=== PATIENT | female | born 1995 | race Caucasian/White ===

== ENCOUNTER 2017-03-05 12:49 | Emergency (ER) | payer BC, MEDICAID ==
[2017-03-05 13:10] VITALS: O2SAT 98
[2017-03-05 13:34] LABS: BASOPHIL % 0.2 % (0.0-0.4); Eosinophil % 2.2 % (0.00-5.0); Granulocytes % 47.4 % (36.0-66.0); Lymphocytes % 37.2 % (24.0-44.0); Mean Cell Volume 86.1 fl (78-100); Mean Corpuscular Hemoglobin 29.2 pg (26-32); Mean Platelet Volume 9.7 fl (6-9.5); Platelet Count 376 K/mm3 (150-450); Red Blood Count 4.66 M/mm3 (4.1-5.4); Red Cell Distribution Width 12.8 % (11.5-14.0); White Blood Count 6.5 K/mm3 (4.0-10.5)
--- NOTE | 2017-03-05 13:34 | ERPHSYRPT ---
- History of Present Illness Time Seen by Provider: 03/05/17 13:11 Source: patient Patient Subjective Stated Complaint: pt states she has had vaginal bleeding since 03/02/17. states her Dr. has switched her control around in the past few days. pt states she wants checked out because she feels "weak, tires, sob and dizzy." Triage Nursing Assessment: pt pink, warm, dry. pt ambulated into ER without difficulty. pt can speak in full sentences without loosing air. Physician History: CC: vaginal bleeding Hx: 21 y/o patient of Dr Page with recent irregular heavy menses. She is breast feeding a 6 month old . She has had some heavier vaginal bleeding since Sunday. She had some clots. Called office and came to ER. No fever or chills. Some abd cramping. Stopped OCP last week after finding out they have estrogen. She felt some dizzy when up, some nausea, and some headache. Allergies/Adverse Reactions: guaifenesin [From Robitussin] Allergy (Intermediate, Verified 03/05/17 13:09) Hives Penicillins Allergy (Intermediate, Verified 03/05/17 13:09) Hives Sulfa (Sulfonamide Antibiotics) Allergy (Intermediate, Verified 03/05/17 13:09) Hives sarah Allergy (Verified 03/05/17 13:09) promethazine HCl [From Phenergan] Adverse Reaction (Mild, Unverified 03/05/17 13 :09) Vomiting Home Medications: Norethindrone-Ethinyl Estrad [Alyacen] 1 each PO UD 03/05/17 [History] Hx Tetanus, Diphtheria Vaccination/Date Given: Yes Hx Influenza Vaccination/Date Given: No Hx Pneumococcal Vaccination/Date Given: No - Review of Systems Constitutional: Malaise, No Fever, No Chills Eyes: No Symptoms Ears, Nose, & Throat: No Symptoms Respiratory: No Dyspnea Cardiac: No Chest Pain, No Syncope Abdominal/Gastrointestinal: Nausea, No Abdominal Pain Genitourinary Symptoms: Vaginal Bleeding, No , No Vaginal Discharge Skin: No Rash Neurological: Headache All Other Systems: Reviewed and Negative - Past Medical History Pertinent Past Medical History: No Neurological History: Migraines ENT History: No Pertinent History Cardiac History: No Pertinent History Respiratory History: No Pertinent History Endocrine Medical History: No Pertinent History Musculoskeletal History: No Pertinent History GI Medical History: No Pertinent History History: No Pertinent History Psycho-Social History: Depression Female Reproductive Disorders: No Pertinent History Other Medical History: Anemia. Hyperemesis - Past Surgical History Past Surgical History: Yes Neuro Surgical History: No Pertinent History Cardiac: No Pertinent History Respiratory: No Pertinent History Gastrointestinal: Appendectomy Genitourinary: No Pertinent History Musculoskeletal: No Pertinent History Female Surgical History: No Pertinent History - Social History Smoking Status: Never smoker Exposure to second hand smoke: No Drug Use: none Patient Lives Alone: No - Female History Hx Last Menstrual Period: now Hx Now: Yes - Nursing Vital Signs Nursing Vital Signs: Initial Vital Signs Temperature 98.5 F Temperature Source Oral Pulse Rate 82 Respiratory Rate 18 Blood Pressure [Right Arm] 131/69 Pain Intensity 5 - Physical Exam General Appearance: alert Eye Exam: PERRL/EOMI, No pale conjunctivae Ears, Nose, Throat Exam: normal ENT inspection, moist mucous membranes Neck Exam: normal inspection, non-tender, supple Respiratory Exam: normal breath sounds Cardiovascular Exam: regular rate/rhythm Gastrointestinal/Abdomen Exam: soft, No tenderness, No distention Pelvic Exam: normal external exam, vaginal bleeding (mild at os), No mass, No cervical motion tenderness, No uterine tenderness, No vaginal discharge Back Exam: normal inspection, normal range of motion Extremity Exam: normal inspection, normal range of motion Neurologic Exam: alert, oriented x 3, cooperative Skin Exam: warm, dry, No rash SpO2 Interpretation: normal SpO2: 98 Oxygen Delivery: Room Air - Course Nursing assessment & vital signs reviewed: Yes Ordered Tests: Active Orders 24 hr Category Date Time Status Orthostatic Vital Signs STAT Care 03/05/17 13:10 Active Pelvic Exam Assist STAT Care 03/05/17 13:12 Active cath [Cath for Specimen-Straight] STAT Care 03/05/17 13:25 Active CBC W DIFF Stat Lab 03/05/17 13:28 Completed HCG QUALITATIVE,SERUM Stat Lab 03/05/17 13:28 Completed UA W/RFX UR CULTURE Stat Lab 03/05/17 13:20 Completed Wet Prep Stat Lab 03/05/17 13:20 Completed Lab/Rad Data: Laboratory Result Diagrams 03/05/17 13:28 Laboratory Results 03/05/17 03/05/17 03/05/17 Range/Units 13:28 13:28 13:20 WBC 6.5 (4.0-10.5) K/mm3 RBC 4.66 (4.1-5.4) M/mm3 Hgb 13.6 (12.0-16.0) gm/dl Hct 40.1 (35-47) % MCV 86.1 (78-100) fl MCH 29.2 (26-32) pg MCHC 33.9 (32-36) g/dl RDW 12.8 (11.5-14.0) % Plt Count 376 (150-450) K/mm3 MPV 9.7 H (6-9.5) fl Gran % 47.4 (36.0-66.0) % Lymphocytes % 37.2 (24.0-44.0) % Monocytes % 13.0 H (0.0-12.0) % Eosinophils % 2.2 (0.00-5.0) % Basophils % 0.2 (0.0-0.4) % Basophils # 0.01 (0-0.4) Serum , Qual NEGATIVE (Negative) Ur Collection Type Urine Color (YELLOW) Urine Appearance (CLEAR) Urine pH (5-6) Ur Specific [place] (1.005-1.025) Urine Protein (Negative) Urine Ketones (NEGATIVE) Urine Blood (0-5) Myles/ul Urine Nitrite (NEGATIVE) Urine Bilirubin (NEGATIVE) Urine Urobilinogen (0-1) mg/dL Ur Leukocyte Esterase (NEGATIVE) Urine Glucose (NEGATIVE) mg/dL WBC (Wet Prep) None Seen RBC (Wet Prep) Many Epi Cells (Wet Prep) Few Bacteria (Wet Prep) Moderate Clue Cells (Wet Prep) Few Trichomonas (Wet Prep) None Seen Budding Yeast (Wet Prp) None Seen Specimen Received 03/05/17 Range/Units 13:20 WBC (4.0-10.5) K/mm3 RBC (4.1-5.4) M/mm3 Hgb (12.0-16.0) gm/dl Hct (35-47) % MCV (78-100) fl MCH (26-32) pg MCHC (32-36) g/dl RDW (11.5-14.0) % Plt Count (150-450) K/mm3 MPV (6-9.5) fl Gran % (36.0-66.0) % Lymphocytes % (24.0-44.0) % Monocytes % (0.0-12.0) % Eosinophils % (0.00-5.0) % Basophils % (0.0-0.4) % Basophils # (0-0.4) Serum , Qual (Negative) Ur Collection Type CATH Urine Color YELLOW (YELLOW) Urine Appearance CLEAR (CLEAR) Urine pH 6.0 (5-6) Ur Specific [place] 1.010 (1.005-1.025) Urine Protein NEGATIVE (Negative) Urine Ketones NEGATIVE (NEGATIVE) Urine Blood NEGATIVE (0-5) Myles/ul Urine Nitrite NEGATIVE (NEGATIVE) Urine Bilirubin NEGATIVE (NEGATIVE) Urine Urobilinogen NORMAL (0-1) mg/dL Ur Leukocyte Esterase NEGATIVE (NEGATIVE) Urine Glucose NEGATIVE (NEGATIVE) mg/dL WBC (Wet Prep) RBC (Wet Prep) Epi Cells (Wet Prep) Bacteria (Wet Prep) Clue Cells (Wet Prep) Trichomonas (Wet Prep) Budding Yeast (Wet Prp) Specimen Received [id number] - Progress Progress Note: 03/05/17 14:27 Vitals ok. Hg good. Advised APAP for discomfort, no tampons, and close follow up with Dr Page. Counseled pt/family regarding: lab results, diagnosis, need for follow-up - Departure Time of Disposition: 14:27 Departure Disposition: Home Clinical Impression: Menorrhagia Qualifiers: Menorrahagia type: with irregular cycle Qualified Code(s): N92.1 - Excessive and frequent menstruation with irregular cycle Condition: Stable Critical Care Time: No Referrals: SALLY DAVIS [Primary Care Provider] - Instructions: Menorrhagia Additional Instructions: No tampons- use pads. Drink plenty of fluids. Call DR Nieves for close follow up. Tylenol as directed for discomfort.
[2017-03-05 13:49] LABS: ADD URINE CULTURE? NO (NO); Bilirubin NEGATIVE (NEGATIVE); Blood NEGATIVE Ery/ul (0-5); COMPLETE URINE MICROSCOPIC? NO; Collection Type CATH; Glucose NEGATIVE (NEGATIVE); Leukocyte Esterase NEGATIVE (NEGATIVE)
[2017-03-05 13:53] LABS: Bacteria Moderate; Clue Cells Few
[2017-03-05 13:54] LABS: Trichomonas None Seen; Yeast None Seen
[2017-03-05 15:01] VITALS: BP 132/71; PULSE 80
[2017-03-05 16:03] LABS: CHLAMYDIA DNA NEGATIVE
== END 2017-03-05 14:35 | disposition home or self-care (01) ==
LOC: ED 12:49
DX: N92.1 Excessive and frequent menstruation with irregular cycle (principal)
CPT/HCPCS: 36415; 81002; 84703; 85025; 87210; 87490; 87590; 99284; P9612

== ENCOUNTER 2018-04-01 20:30 | Emergency (ER) | payer BC, OTHER ==
[2018-04-01 20:45] VITALS: O2SAT 100
[2018-04-01 21:07] LABS: BASOPHIL % 0.2 % (0.0-0.4); Basophil (Absolute #) 0.02 (0-0.4); Eosinophil % 1.1 % (0.00-5.0); Eosinophil (Absolute #) 0.11 (0-0.5); Granulocyte Absolute (ANC) 6.55 (1.4-6.9); Granulocytes % 62.7 % (36.0-66.0); Hematocrit 42.5 % (35-47); Hemoglobin 14.4 gm/dl (12.0-16.0); Lymphocyte (Absolute #) 2.77 (1.0-4.6); Lymphocytes % 26.6 % (24.0-44.0); Mean Cell Volume 85.5 fl (78-100); Mean Corpuscular Hgb Concent. 33.9 g/dl (32-36); Mean Platelet Volume 9.7 fl (6-9.5); Monocyte (Absolute #) 0.98 (0.0-1.3); Monocytes % 9.4 % (0.0-12.0); Platelet Count 389 K/mm3 (150-450); Red Blood Count 4.97 M/mm3 (4.1-5.4); Red Cell Distribution Width 13.4 % (11.5-14.0); White Blood Count 10.4 K/mm3 (4.0-10.5)
[2018-04-01 21:14] LABS: Appearance CLEAR (CLEAR); Bilirubin NEGATIVE (NEGATIVE); Blood NEGATIVE Ery/ul (0-5); Glucose NEGATIVE (NEGATIVE); Ketones NEGATIVE (NEGATIVE); Leukocyte Esterase NEGATIVE (NEGATIVE); Nitrite NEGATIVE (NEGATIVE); Protein,Urine Dip NEGATIVE (Negative); Urobilinogen NORMAL mg/dL (0-1)
--- NOTE | 2018-04-01 21:19 | ERPHSYRPT ---
- History of Present Illness Time Seen by Provider: 04/01/18 21:02 Source: patient Exam Limitations: no limitations Patient Subjective Stated Complaint: Pt arrives to ER with c/o swelling in bilateral hands for 5 weeks states is 9 weeks and today after an [address] home at 1700 c/o new intermittent bilateral tingling in hands lasting 5-10 minutes then goes away. States swelling has resolved at this moment. Pt also mentions SOB that began 1 hour ago. Pt does not appear to be in any distress at this time with respirations easy even regular and unlabored. O2 Sat 100% on RA Triage Nursing Assessment: see above Physician History: The patient is a 22-year-old female at 9 weeks 3 days per menstrual period, complaining of 20 minutes of shortness of breath and chest palpitations while at work prior to arrival. The shortness of breath was a feeling of that she couldn't catch her breath. This has now resolved as well as has the chest palpitations. She complains of intermittent bilateral hand swelling that began 5 weeks ago. The swelling now comes and goes but has for the most part resolved at this time. She was on a car ride today the total 8 hours. She states that she had numbness and tingling in both hands time to time. The numbness and tingling would last only 5 minutes. It would return after 30 minutes or more. She has not seen OB yet for this . She is to see OB tomorrow for the first visit. Her past pregnancies have been uneventful. Her past medical history is negative. Timing/Duration: today, resolved prior to arrival, sudden Activities at Onset: none Severity of Dyspnea-Max: mild Severity of Dyspnea-Current: none Possible Cause: no prior episodes Modifying Factors: Improves With: nothing Associated Symptoms: No cough, No edema, No wheezing, No ankle swelling, No leg swelling, No painful breathing Allergies/Adverse Reactions: guaifenesin [From Robitussin] Allergy (Intermediate, Verified 04/01/18 20:44) Hives Penicillins Allergy (Intermediate, Verified 04/01/18 20:44) Hives Sulfa (Sulfonamide Antibiotics) Allergy (Intermediate, Verified 04/01/18 20:44) Hives sarah Allergy (Verified 04/01/18 20:44) promethazine HCl [From Phenergan] Adverse Reaction (Mild, Verified 04/01/18 20: 44) Vomiting Home Medications: Vits W-Ca,Fe,FA(<1Mg) [] 1 each PO 04/01/18 [History] Hx Tetanus, Diphtheria Vaccination/Date Given: Yes Hx Influenza Vaccination/Date Given: No Hx Pneumococcal Vaccination/Date Given: No - Review of Systems Constitutional: No Fever, No Chills Eyes: No Symptoms Ears, Nose, & Throat: No Symptoms Respiratory: Dyspnea Cardiac: No Chest Pain, No Edema, No Syncope Abdominal/Gastrointestinal: No Abdominal Pain, No Nausea, No Vomiting, No Diarrhea Genitourinary Symptoms: No Dysuria Musculoskeletal: No Back Pain, No Neck Pain Skin: No Rash Neurological: Parasthesia Psychological: No Symptoms Endocrine: No Symptoms Hematologic/Lymphatic: No Symptoms Immunological/Allergic: No Symptoms All Other Systems: Reviewed and Negative - Past Medical History Pertinent Past Medical History: Yes Neurological History: Migraines ENT History: No Pertinent History Cardiac History: No Pertinent History Respiratory History: No Pertinent History Endocrine Medical History: No Pertinent History Musculoskeletal History: No Pertinent History GI Medical History: No Pertinent History History: No Pertinent History Psycho-Social History: Depression Female Reproductive Disorders: No Pertinent History Other Medical History: Anemia. Hyperemesis - Past Surgical History Past Surgical History: Yes Neuro Surgical History: No Pertinent History Cardiac: No Pertinent History Respiratory: No Pertinent History Gastrointestinal: Appendectomy Genitourinary: No Pertinent History Musculoskeletal: No Pertinent History Female Surgical History: No Pertinent History - Social History Smoking Status: Never smoker Exposure to second hand smoke: No Drug Use: none Patient Lives Alone: No - Female History Hx Now: Yes Expected Date of Delivery: 11/02/18 - Nursing Vital Signs Nursing Vital Signs: Initial Vital Signs Temperature 98.7 F 04/01/18 20:35 Pulse Rate 87 04/01/18 20:35 Respiratory Rate 18 04/01/18 20:35 Blood Pressure 134/72 04/01/18 20:35 O2 Sat by Pulse Oximetry 100 04/01/18 20:35 Pain Scale Pain Intensity 0 - Physical Exam General Appearance: no apparent distress, alert Eye Exam: PERRL/EOMI Ears, Nose, Throat Exam: hearing grossly normal Neck Exam: normal inspection, supple Respiratory Exam: normal breath sounds Cardiovascular/Chest Exam: normal heart sounds, regular rate/rhythm Abdominal/Gastrointestinal Exam: soft, No tenderness, No distention, No mass Rectal Exam: not done Extremity Exam: non-tender, normal range of motion, normal inspection, no calf tenderness, no pedal edema Neurologic Exam: alert, oriented x 3, cooperative, 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, sensation nml, No motor deficits Skin Exam: normal color, warm, No dry SpO2 Interpretation: normal SpO2: 100 Oxygen Delivery: Nasal Cannula - Course EKG Interpreted by Me: RATE, Sinus Rhythm, NORMAL AXIS, NORMAL INTERVALS, NORMAL QRS, NORMAL ST-T Ordered Tests: Active Orders 24 hr Category Date Time Status Clean Catch Urine Specimen STAT Care 04/01/18 20:57 Active EKG-ER Only STAT Care 04/01/18 21:49 Active IV Insertion STAT Care 04/01/18 21:06 Active BMP Stat Lab 04/01/18 20:57 Completed BNP [NT PRO BNP] Stat Lab 04/01/18 20:57 Completed CBC W DIFF Stat Lab 04/01/18 20:57 Completed HCG, Quantitative (Inhouse) Stat Lab 04/01/18 20:57 Received UA W/RFX UR CULTURE Stat Lab 04/01/18 21:06 Completed Urine Triage Profile Stat Lab 04/01/18 20:57 Completed Lab/Rad Data: Laboratory Result Diagrams 04/01/18 20:57 04/01/18 20:57 Laboratory Results 04/01/18 04/01/18 04/01/18 Range/Units 21:06 20:57 20:57 WBC (4.0-10.5) K/mm3 RBC (4.1-5.4) M/mm3 Hgb (12.0-16.0) gm/dl Hct (35-47) % MCV (78-100) fl MCH (26-32) pg MCHC (32-36) g/dl RDW (11.5-14.0) % Plt Count (150-450) K/mm3 MPV (6-9.5) fl Gran % (36.0-66.0) % Eos # (Auto) (0-0.5) Absolute Lymphs (auto) (1.0-4.6) Absolute Monos (auto) (0.0-1.3) Lymphocytes % (24.0-44.0) % Monocytes % (0.0-12.0) % Eosinophils % (0.00-5.0) % Basophils % (0.0-0.4) % Absolute Granulocytes (1.4-6.9) Basophils # (0-0.4) Sodium 137 (137-145) mmol/L Potassium 3.8 (3.5-5.1) mmol/L Chloride 102 (98-107) mmol/L Carbon Dioxide 26 (22-30) mmol/L Anion Gap 12.4 (5-15) MEQ/L BUN 8 (7-17) mg/dL Creatinine 0.52 (0.52-1.04) mg/dL Estimated GFR > 60.0 ML/MIN Glucose 94 (74-106) mg/dL Calcium 10.2 (8.4-10.2) mg/dL NT-Pro-B Natriuret Pep (0-450) pg/mL Ur Collection Type CLEAN CATCH Urine Color YELLOW (YELLOW) Urine Appearance CLEAR (CLEAR) Urine pH 5.0 (5-6) Ur Specific [place] 1.030 (1.005-1.025) Urine Protein NEGATIVE (Negative) Urine Ketones NEGATIVE (NEGATIVE) Urine Blood NEGATIVE (0-5) Myles/ul Urine Nitrite NEGATIVE (NEGATIVE) Urine Bilirubin NEGATIVE (NEGATIVE) Urine Urobilinogen NORMAL (0-1) mg/dL Ur Leukocyte Esterase NEGATIVE (NEGATIVE) Urine Culture Reflexed NO (NO) Urine Glucose NEGATIVE (NEGATIVE) mg/dL Urine Opiates Level NEGATIVE (NEGATIVE) Ur Methadone NEGATIVE (NEGATIVE) Urine Barbiturates NEGATIVE (NEGATIVE) Ur Phencyclidine (PCP) NEGATIVE (NEGATIVE) Urine Amphetamine NEGATIVE (NEGATIVE) U Benzodiazepine Level NEGATIVE (NEGATIVE) Urine Cocaine NEGATIVE (NEGATIVE) Urine Marijuana (THC) NEGATIVE (NEGATIVE) Specimen Received 04/01/18210504/01/18 04/01/18 Range/Units 20:57 20:57 WBC 10.4 (4.0-10.5) K/mm3 RBC 4.97 (4.1-5.4) M/mm3 Hgb 14.4 (12.0-16.0) gm/dl Hct 42.5 (35-47) % MCV 85.5 (78-100) fl MCH 29.0 (26-32) pg MCHC 33.9 (32-36) g/dl RDW 13.4 (11.5-14.0) % Plt Count 389 (150-450) K/mm3 MPV 9.7 H (6-9.5) fl Gran % 62.7 (36.0-66.0) % Eos # (Auto) 0.11 (0-0.5) Absolute Lymphs (auto) 2.77 (1.0-4.6) Absolute Monos (auto) 0.98 (0.0-1.3) Lymphocytes % 26.6 (24.0-44.0) % Monocytes % 9.4 (0.0-12.0) % Eosinophils % 1.1 (0.00-5.0) % Basophils % 0.2 (0.0-0.4) % Absolute Granulocytes 6.55 (1.4-6.9) Basophils # 0.02 (0-0.4) Sodium (137-145) mmol/L Potassium (3.5-5.1) mmol/L Chloride (98-107) mmol/L Carbon Dioxide (22-30) mmol/L Anion Gap (5-15) MEQ/L BUN (7-17) mg/dL Creatinine (0.52-1.04) mg/dL Estimated GFR ML/MIN Glucose (74-106) mg/dL Calcium (8.4-10.2) mg/dL NT-Pro-B Natriuret Pep 41.6 (0-450) pg/mL Ur Collection Type Urine Color (YELLOW) Urine Appearance (CLEAR) Urine pH (5-6) Ur Specific [place] (1.005-1.025) Urine Protein (Negative) Urine Ketones (NEGATIVE) Urine Blood (0-5) Myles/ul Urine Nitrite (NEGATIVE) Urine Bilirubin (NEGATIVE) Urine Urobilinogen (0-1) mg/dL Ur Leukocyte Esterase (NEGATIVE) Urine Culture Reflexed (NO) Urine Glucose (NEGATIVE) mg/dL Urine Opiates Level (NEGATIVE) Ur Methadone (NEGATIVE) Urine Barbiturates (NEGATIVE) Ur Phencyclidine (PCP) (NEGATIVE) Urine Amphetamine (NEGATIVE) U Benzodiazepine Level (NEGATIVE) Urine Cocaine (NEGATIVE) Urine Marijuana (THC) (NEGATIVE) Specimen Received - Progress Progress: unchanged Air Movement: good Blood Culture(s) Obtained: No Antibiotics given: No Counseled pt/family regarding: lab results, diagnosis - Departure Time of Disposition: 22:03 Departure Disposition: Home Clinical Impression: Heart palpitations Condition: Stable Critical Care Time: No Referrals: MARIE GREY MD [Primary Care Provider] - Additional Instructions: The brief episode of feeling that your heart was pounding and difficulty in catching your breath was likely due to heart palpitations. Your laboratory results including of the urinalysis and EKG were all normal. Follow-up tomorrow with her scheduled visit to your OB doctor.
[2018-04-01 21:24] LABS: ANION GAP 12.4 MEQ/L (5-15); BLOOD UREA NITROGEN 8 mg/dL (7-17); CHLORIDE 102 mmol/L (98-107); Calcium 10.2 mg/dL (8.4-10.2); Carbon Dioxide 26 mmol/L (22-30); Creatinine 1 0.52 mg/dL (0.52-1.04); Glucose 94 mg/dL (74-106); Potassium 3.8 mmol/L (3.5-5.1); SODIUM 137 mmol/L (137-145)
[2018-04-01 21:25] LABS: Amphetamine,Urine NEGATIVE (NEGATIVE); Barbiturate,Urine NEGATIVE (NEGATIVE); Benzodiazepine,Urine NEGATIVE (NEGATIVE); Cocaine,Urine NEGATIVE (NEGATIVE); Methadone,Urine NEGATIVE (NEGATIVE); Opiate,Urine NEGATIVE (NEGATIVE); PCP,Urine NEGATIVE (NEGATIVE); THC,Urine NEGATIVE (NEGATIVE)
[2018-04-01 22:03] VITALS: BP 113/67; PULSE 85
== END 2018-04-01 22:26 | disposition home or self-care (01) ==
LOC: ED 20:30
DX: R00.2 Palpitations (principal); R06.02 Shortness of breath; M79.89 Other specified soft tissue disorders; Z33.1 Pregnant state, incidental; R06.00 Dyspnea, unspecified; F32.9 Major depressive disorder, single episode, unspecified
CPT/HCPCS: 36000; 36415; 80048; 80307; 81002; 83880; 84702; 85025; 93005; 99284

== ENCOUNTER 2018-09-28 15:42 | Observation (INO) | payer OTHER ==
[2018-09-28 16:13] VITALS: BP 136/81; PULSE 114
[2018-09-28 16:37] LABS: Amphetamine,Urine NEGATIVE (NEGATIVE); Barbiturate,Urine NEGATIVE (NEGATIVE); Benzodiazepine,Urine NEGATIVE (NEGATIVE); Cocaine,Urine NEGATIVE (NEGATIVE); Methadone,Urine NEGATIVE (NEGATIVE); Opiate,Urine NEGATIVE (NEGATIVE); PCP,Urine NEGATIVE (NEGATIVE); THC,Urine NEGATIVE (NEGATIVE)
[2018-09-28 17:23] LABS: Appearance CLEAR (CLEAR); Bilirubin NEGATIVE (NEGATIVE); Blood NEGATIVE Ery/ul (0-5); Epithelial Cells RARE /HPF (FEW); Glucose NEGATIVE (NEGATIVE); Ketones NEGATIVE (NEGATIVE); Leukocyte Esterase NEGATIVE (NEGATIVE); Mucus SLIGHT /HPF (NEGATIVE); Nitrite NEGATIVE (NEGATIVE); Protein,Urine Dip NEGATIVE (Negative); Specific Gravity 1.005 (1.005-1.025); Urobilinogen NEGATIVE mg/dL (0-1); WBC 0-2 /HPF (0-5)
== END 2018-09-28 18:25 | disposition home or self-care (01) ==
LOC: OB 15:42
PROVIDERS: ADMIT Family Medicine; ATTEND Family Medicine
DX: Z34.83 Encounter for supervision of other normal pregnancy, third trimester (principal)
CPT/HCPCS: 80307; 81001; G0378

== ENCOUNTER 2019-02-05 11:34 | Emergency (ER) | payer OTHER ==
[2019-02-05] MEDS ORDERED: Sodium Chloride 0.9% 1000 ML 1,000 ML IV STA (12:09)
--- NOTE | 2019-02-05 12:16 | ERPHSYRPT ---
- History of Present Illness Time Seen by Provider: 02/05/19 12:11 Source: patient Exam Limitations: no limitations Patient Subjective Stated Complaint: blackouts Triage Nursing Assessment: Patient report today was the first time she blackout. before that since this sunday she has felt dizzy with weekness with a pressure to her head that feels like a wieght Physician History: 23-year-old white female arrives with complaint of 4-5 days of feeling dizzy and as if she is pressure. She states today she was driving and blacked out for about 5 seconds no seizure activity. Patient states he felt dizzy before she blacked out. Patient apparently had been seen by her family doctor yesterday she had blood work and monitor was placed. She has no other complaints. Past medical history includes migraines, depression, hyperemesis. Past surgical history includes appendectomy and tubal ligation. Timing/Duration: other (dizzy and head pressure for 5 seconds today) Severity: mild Modifying Factors: Improves With: nothing Associated Symptoms: headaches, syncope, other (dizzy), No nausea, No vomiting, No abdominal pain, No shortness of breath, No heartburn, No diaphoresis, No cough, No chills, No chest pain, No fever, No loss of appetite, No malaise, No rash, No seizure, No weakness Allergies/Adverse Reactions: guaifenesin [From Robitussin] Allergy (Intermediate, Verified 02/05/19 12:01) Hives Penicillins Allergy (Intermediate, Verified 02/05/19 12:01) Hives Sulfa (Sulfonamide Antibiotics) Allergy (Intermediate, Verified 02/05/19 12:01) Hives sarah Allergy (Verified 02/05/19 12:01) promethazine HCl [From Phenergan] Adverse Reaction (Mild, Verified 02/05/19 12: 01) Vomiting Home Medications: No Reportable Medications [No Reported Medications] 02/05/19 [History] Hx Tetanus, Diphtheria Vaccination/Date Given: No Hx Influenza Vaccination/Date Given: No Hx Pneumococcal Vaccination/Date Given: No Immunizations Up to Date: Yes - Review of Systems Constitutional: No Fever, No Chills Eyes: No Symptoms Ears, Nose, & Throat: No Symptoms Respiratory: No Cough, No Dyspnea Cardiac: Syncope (5 second syncope while riding in car no postictal period), No Chest Pain, No Edema Abdominal/Gastrointestinal: No Abdominal Pain, No Nausea, No Vomiting, No Diarrhea Genitourinary Symptoms: No Dysuria Musculoskeletal: No Back Pain, No Neck Pain Skin: No Rash Neurological: Dizziness, Other (head pressure) Psychological: No Symptoms Endocrine: No Symptoms All Other Systems: Reviewed and Negative - Past Medical History Pertinent Past Medical History: Yes Neurological History: Seizures ENT History: No Pertinent History Cardiac History: No Pertinent History Respiratory History: No Pertinent History Endocrine Medical History: No Pertinent History Musculoskeletal History: No Pertinent History GI Medical History: No Pertinent History History: No Pertinent History Psycho-Social History: No Pertinent History Female Reproductive Disorders: No Pertinent History Other Medical History: Anemia. Hyperemesis - Past Surgical History Past Surgical History: Yes Neuro Surgical History: No Pertinent History Cardiac: No Pertinent History Respiratory: No Pertinent History Gastrointestinal: Appendectomy Genitourinary: No Pertinent History Musculoskeletal: No Pertinent History Female Surgical History: Tubal Ligation - Social History Smoking Status: Former smoker Exposure to second hand smoke: No Drug Use: none Patient Lives Alone: No - Female History Hx Last Menstrual Period: january 22 Hx Now: No - Nursing Vital Signs Nursing Vital Signs: Initial Vital Signs Temperature 98.6 F 02/05/19 11:48 Pulse Rate 92 H 02/05/19 11:48 Respiratory Rate 20 02/05/19 11:48 Blood Pressure 129/78 02/05/19 11:48 O2 Sat by Pulse Oximetry 97 02/05/19 11:48 Pain Scale Pain Intensity 0 - Physical Exam General Appearance: no apparent distress, alert Eye Exam: PERRL/EOMI, eyes nml inspection Ears, Nose, Throat Exam: normal ENT inspection, TMs normal, pharynx normal, moist mucous membranes Neck Exam: normal inspection, non-tender, supple, full range of motion Respiratory Exam: normal breath sounds, lungs clear, No respiratory distress Cardiovascular Exam: regular rate/rhythm, normal heart sounds, normal peripheral pulses, capillary refill <2 sec Gastrointestinal/Abdomen Exam: soft, normal bowel sounds, No tenderness, No mass Back Exam: normal inspection, normal range of motion, No CVA tenderness, No vertebral tenderness Extremity Exam: normal inspection, normal range of motion, pelvis stable Neurologic Exam: alert, oriented x 3, cooperative, section leader screen printing II-XII nml as tested, normal mood/affect, nml cerebellar function, nml station & gait, sensation nml, No motor deficits Skin Exam: normal color, warm, dry, No rash SpO2 Interpretation: normal (97%and) SpO2: 97 - Course Nursing assessment & vital signs reviewed: Yes EKG Interpreted by Me: RATE (91 bpm), Sinus Rhythm, NORMAL AXIS, Other (EKG: Sinus rhythm, 91 beats per minute, no acute st or T wave changes, normal EKG) - CT Exams Head CT Interpretation: Discussed w/radiologist (CT head without contrast:impression : Normal CT head without contrast exam) Ordered Tests: Active Orders 24 hr Category Date Time Status EKG-ER Only STAT Care 02/05/19 12:09 Active IV Insertion STAT Care 02/05/19 12:09 Active Orthostatic Vital Signs STAT Care 02/05/19 12:12 Active HEAD WITHOUT CONTRAST [CT] Stat Exams 02/05/19 12:11 Completed BMP Stat Lab 02/05/19 13:25 Completed CBC W DIFF Stat Lab 02/05/19 13:25 Completed UA W/RFX UR CULTURE Stat Lab 02/05/19 Completed Medication Summary Discontinued Medications Generic Name Dose Route Start Last Admin Trade Name Freq PRN Reason Stop Dose Admin Sodium Chloride 1,000 mls @ 999 mls/hr 02/05/19 12:09 02/05/19 12:17 Sodium Chloride 0.9% 1000 Ml IV 02/05/19 13:09 999 mls/hr .Q1H1M STA Administration Lab/Rad Data: Laboratory Result Diagrams 02/05/19 13:25 02/05/19 13:25 Laboratory Results 02/05/19 02/05/19 02/05/19 Range/Units Unknown 13:25 13:25 WBC 7.7 (4.0-10.5) K/mm3 RBC 4.86 (4.1-5.4) M/mm3 Hgb 13.5 (12.0-16.0) gm/dl Hct 41.2 (35-47) % MCV 84.8 (78-100) fl MCH 27.8 (26-32) pg MCHC 32.8 (32-36) g/dl RDW 13.4 (11.5-14.0) % Plt Count 413 (150-450) K/mm3 MPV 9.5 (6-9.5) fl Gran % 46.0 (36.0-66.0) % Eos # (Auto) 0.16 (0-0.5) Absolute Lymphs (auto) 2.92 (1.0-4.6) Absolute Monos (auto) 1.07 (0.0-1.3) Lymphocytes % 37.9 (24.0-44.0) % Monocytes % 13.9 H (0.0-12.0) % Eosinophils % 2.1 (0.00-5.0) % Basophils % 0.1 (0.0-0.4) % Absolute Granulocytes 3.54 (1.4-6.9) Basophils # 0.01 (0-0.4) Sodium 141 (137-145) mmol/L Potassium 4.2 (3.5-5.1) mmol/L Chloride 104 (98-107) mmol/L Carbon Dioxide 27 (22-30) mmol/L Anion Gap 14.6 (5-15) MEQ/L BUN 15 (7-17) mg/dL Creatinine 0.67 (0.52-1.04) mg/dL Estimated GFR > 60.0 ML/MIN Glucose 74 (74-106) mg/dL Calcium 9.6 (8.4-10.2) mg/dL Urine Color YELLOW (YELLOW) Urine Appearance SLIGHTLY CLOUDY (CLEAR) Urine pH 5.0 (5-6) Ur Specific [place] 1.020 (1.005-1.025) Urine Protein NEGATIVE (Negative) Urine Ketones NEGATIVE (NEGATIVE) Urine Blood NEGATIVE (0-5) Myles/ul Urine Nitrite NEGATIVE (NEGATIVE) Urine Bilirubin NEGATIVE (NEGATIVE) Urine Urobilinogen NEGATIVE (0-1) mg/dL Ur Leukocyte Esterase MODERATE (NEGATIVE) Urine WBC (Auto) 6-10 (0-5) /HPF Urine RBC (Auto) 0-2 (0-2) /HPF U Epithel Cells (Auto) RARE (FEW) /HPF Urine Bacteria (Auto) FEW (NEGATIVE) /HPF Urine Mucus (Auto) SLIGHT (NEGATIVE) /HPF Urine Culture Reflexed NO (NO) Urine Glucose NEGATIVE (NEGATIVE) mg/dL - Progress Progress: improved Progress Note: 02/05/19 13:55 This is a 23-year-old white female arrives with complaint of feeling dizzy for 4 -5 days apparently had a 5 second period where she felt like she blacked out in the car while a passenger in her 's car patient without any seizure activity no postictal period. Patient with the EKG sinus rhythm 91 beats per minute normal axis no acute ST or T wave changes normal EKG Patient with a CT head normal CT head without contrast exam CBC is normal urinalysis essentially normal Patient's CMP is normal. Patient had a set of labs yesterday as well. Patient in no acute distress she has had a monitor which was placed by her family doctor which the family states she is about done with him about 50 minutes. Will plan on discharging this patient. Patient to have no Heights no hazardous activity take showers instead of baths no driving. Followup with her family consider syncope possible hypoglycemic episode. 02/05/19 13:57 - Departure Departure Disposition: Home Clinical Impression: possible hypoglycemic episode Syncope Qualifiers: Syncope type: unspecified Qualified Code(s): R55 - Syncope and collapse Condition: Fair Critical Care Time: No Referrals: MARIE GREY MD [Primary Care Provider] - Additional Instructions: Return home. Plenty of fluids. Frequent small meals. No Heights no hazardous activity take showers instead of baths no driving, do not engage in any activity which might harm yourself or others. Followup with your family . Return for acute distress or for severe symptoms.
--- NOTE | 2019-02-05 12:50 | XRAY ---
Indication: Syncopal episodes. Head pressure. Multiple contiguous axial images obtained through the head without contrast. Comparison: None Normal appearing brain parenchyma, ventricles, and bony calvarium. Visualized paranasal sinuses and mastoid air cells are clear. Impression: Normal CT head without contrast exam. CT DI 71.08
[2019-02-05 12:51] VITALS: PULSE 82
[2019-02-05 12:59] VITALS: O2SAT 97
[2019-02-05 13:29] LABS: BASOPHIL % 0.1 % (0.0-0.4); Basophil (Absolute #) 0.01 (0-0.4); Eosinophil % 2.1 % (0.00-5.0); Eosinophil (Absolute #) 0.16 (0-0.5); Granulocyte Absolute (ANC) 3.54 (1.4-6.9); Hematocrit 41.2 % (35-47); Hemoglobin 13.5 gm/dl (12.0-16.0); Lymphocyte (Absolute #) 2.92 (1.0-4.6); Lymphocytes % 37.9 % (24.0-44.0); Mean Cell Volume 84.8 fl (78-100); Mean Corpuscular Hemoglobin 27.8 pg (26-32); Mean Corpuscular Hgb Concent. 32.8 g/dl (32-36); Mean Platelet Volume 9.5 fl (6-9.5); Monocyte (Absolute #) 1.07 (0.0-1.3); Monocytes % 13.9 % (0.0-12.0); Platelet Count 413 K/mm3 (150-450); Red Blood Count 4.86 M/mm3 (4.1-5.4); Red Cell Distribution Width 13.4 % (11.5-14.0); White Blood Count 7.7 K/mm3 (4.0-10.5)
[2019-02-05 13:38] LABS: Appearance SLIGHTLY CLOUDY (CLEAR); Bacteria FEW /HPF (NEGATIVE); Bilirubin NEGATIVE (NEGATIVE); Blood NEGATIVE Ery/ul (0-5); Epithelial Cells RARE /HPF (FEW); Glucose NEGATIVE (NEGATIVE); Ketones NEGATIVE (NEGATIVE); Leukocyte Esterase MODERATE (NEGATIVE); Mucus SLIGHT /HPF (NEGATIVE); Nitrite NEGATIVE (NEGATIVE); Protein,Urine Dip NEGATIVE (Negative); RBC 0-2 /HPF (0-2); Urobilinogen NEGATIVE mg/dL (0-1)
[2019-02-05 13:47] LABS: ANION GAP 14.6 MEQ/L (5-15); BLOOD UREA NITROGEN 15 mg/dL (7-17); CHLORIDE 104 mmol/L (98-107); Calcium 9.6 mg/dL (8.4-10.2); Carbon Dioxide 27 mmol/L (22-30); Creatinine 1 0.67 mg/dL (0.52-1.04); Glucose 74 mg/dL (74-106); Potassium 4.2 mmol/L (3.5-5.1); SODIUM 141 mmol/L (137-145)
[2019-02-05 14:30] VITALS: BP 112/69
== END 2019-02-05 14:31 | disposition home or self-care (01) ==
LOC: ED 11:34
DX: R55 Syncope and collapse (principal); R42 Dizziness and giddiness; R53.83 Other fatigue; R51 Headache
CPT/HCPCS: 36415; 70450; 80048; 81001; 85025; 93005; 96360; 96361; 99284

== ENCOUNTER 2020-02-03 06:44 | Day surgery (SDC) | payer BC ==
[~2020-02-03 06:44] MED LIST: Lactated Ringers 1,000 ML IV SCH
[2020-02-03] MEDS ORDERED: Versed 2 MG/2 ML Injection ONE (07:47)
[2020-02-03] MEDS ORDERED: Versed 2 MG/2 ML Injection IV ONE (08:41)
[2020-02-03] MEDS ORDERED: SUBLIMAZE 100 MCG/2 ML ONE (08:46)
[2020-02-03] MEDS ORDERED: Zofran 4 MG/2 ML VIAL ONE (08:46)
[2020-02-03] MEDS ORDERED: DIPRIVAN 200 MG/20 ML IV ONE (08:46)
[2020-02-03] MEDS ORDERED: Decadron 4 MG INJ ONE (08:46)
[2020-02-03] MEDS ORDERED: Xylocaine-Mpf 2% 5 Ml Vial ONE (08:46)
[2020-02-03 11:08] VITALS: O2SAT 96
[2020-02-03 11:14] VITALS: BP 124/62; PULSE 76
--- NOTE | 2020-02-04 07:51 | OP ---
SURGERY DATE/TIME: 02/03/2020 0852 PREOPERATIVE DIAGNOSIS: Abnormal uterine bleeding. POSTOPERATIVE DIAGNOSIS: Abnormal uterine bleeding. PROCEDURE: Hysteroscopy, D&C. SURGEON: Leeroy Valdes D.O. SCHOOL JANITOR: Zachary Meyer therapy technician. ANESTHESIA: General. ESTIMATED BLOOD LOSS: Minimal. COMPLICATIONS: None. INDICATIONS: The risks, benefits, indications and alternatives of the procedure were reviewed with the patient prior to the procedure. The patient understood the risk of infection, bleeding, bowel injury, bladder injury, ureteral injury, uterine perforation, pelvic infection, thromboembolic disorder associated with this surgery and desires to have this procedure as a possible means to alleviate her current medical condition. DESCRIPTION OF PROCEDURE AND FINDINGS: At this point the patient is taken to the operating room, given general sedation, placed in dorsal lithotomy position. Prepped and draped in the usual sterile fashion. A weighted speculum is then placed in the patient's vagina and the anterior lip of the cervix was grasped with a single tooth tenaculum. Endocervical dilators were advanced through the endocervical canal as a means to dilate the cervix and then a 5 mm hysteroscope was then placed into the endocervical canal where after reaching the fundal region visualization of the uterine cavity appeared to be within normal limits with no gross abnormalities located within the uterine cavity. Bilateral ostia appeared to be within normal limits and patent. Again, there were no abnormalities located within the uterine cavity by hysteroscopy. From this point the hysteroscope was then removed from the vaginal region and a curette was then subsequently placed into the fundus of the uterus where curettage was performed in all quadrants of the uterus retrieving a mild to moderate amount of tissue. After removal of the curette hemostasis was obtained. All instruments were then removed from the patient's vaginal region. The patient was taken out of the dorsal lithotomy position, was taken out of anesthesia and was then taken to the recovery room in stable condition. All instruments and laps were accounted for x2.
== END 2020-02-03 11:14 | disposition home or self-care (01) ==
LOC: SDC 06:44
PROVIDERS: ATTEND Obstetrics & Gynecology
DX: N93.9 Abnormal uterine and vaginal bleeding, unspecified (principal)
CPT/HCPCS: 84703; J1100; J2250; J2405; J2704; J3010

== ENCOUNTER 2021-01-11 06:36 | Day surgery (SDC) | payer OTHER ==
[2021-01-11] MEDS ORDERED: Versed 2 MG/2 ML Injection IV ONE (06:55)
[2021-01-11] MEDS ORDERED: Lactated Ringers 1,000 ML IV SCH (07:00)
[2021-01-11] MEDS ORDERED: Lactated Ringers 1,000 ML IV ONE (07:16)
[2021-01-11] MEDS ORDERED: ASTRINGYN 8 GM TP ONE (07:18)
[2021-01-11] MEDS ORDERED: XYLOCAINE 1%/Epi 1:100000 MDV 20 ML ONE (07:19)
[2021-01-11] MEDS ORDERED: Versed 2 MG/2 ML Injection ONE (08:30)
[2021-01-11] MEDS ORDERED: SUBLIMAZE 100 MCG/2 ML ONE (08:30)
[2021-01-11] MEDS ORDERED: DIPRIVAN 200 MG/20 ML IV ONE (08:30)
[2021-01-11] MEDS ORDERED: Decadron 4 MG INJ ONE (08:35)
[2021-01-11] MEDS ORDERED: TORAdol 30 mg Injection ONE (08:47)
[2021-01-11 10:55] VITALS: PULSE 77
[2021-01-11 11:04] VITALS: BP 128/79; O2SAT 99
--- NOTE | 2021-01-12 09:03 | OP ---
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 PROCEDURE: Loop electrosurgical excision procedure. SURGEON: Leeroy Valdes D.O. LEGGER PRESS OPERATOR: Zachary Meyer neurosurgical nurse. ANESTHESIA: General. ESTIMATED BLOOD LOSS: Minimal. COMPLICATIONS: None. INDICATIONS: The risks, benefits, indications and alternatives of the procedure were reviewed with the patient prior to procedure. The patient understood the risk of infection, bleeding, bowel injury, bladder injury, pelvic infection, cervical incompetence and decreased orgasm associated with this procedure however desires to have this surgery as a possible means to alleviate her current medical condition. DESCRIPTION OF PROCEDURE AND FINDINGS: At this point the patient is taken to the operating room, given general sedation, placed in dorsal lithotomy position. Prepped and draped in the usual sterile fashion. A coated speculum is then placed into the patient's vaginal and the anterior lip of the cervix was then circumferentially injected with 1% lidocaine with epinephrine. From this point the loop instrument was then used to excise the ectocervical portion where in depth of 7 to 8 mm of ectocervical tissue was excised in a right to left motion with the loop instrument and was done so without complication. An additional endocervical biopsy of 2 to 3 mm of endocervical tissue was excised in similar fashion. From this point hemostasis was obtained by placing a loop dental equipment installer and servicer ball on the surface of the cervix and at this point hemostasis was obtained. From this point all instruments were then removed from the patient's vaginal region. The patient was then taken out of the dorsal lithotomy position, was taken out of anesthesia and was then taken to the recovery room in stable condition. All instruments and laps were accounted for x2.
== END 2021-01-11 10:05 | disposition home or self-care (01) ==
LOC: SDC 06:36
PROVIDERS: ATTEND Obstetrics & Gynecology
DX: N87.9 Dysplasia of cervix uteri, unspecified (principal); Z80.8 Family history of malignant neoplasm of other organs or systems
CPT/HCPCS: 84703; J1100; J1885; J2250; J2704; J3010; A9270-GY

== ENCOUNTER 2021-01-17 11:20 | Emergency (ER) | payer OTHER ==
--- NOTE | 2021-01-17 12:12 | ERPHSYRPT ---
- History of Present Illness Source: patient Patient Subjective Stated Complaint: PT states "I had a leap procedure done on sundayjanuary [address] Valdes. On I woke up with matted eyes and not feeling well. I have been having chills ever since and I called Dr. Valdes today and he said I need to come here to get bloodwork to see if I have an infection." Triage Nursing Assessment: Pt presented alert and oriented X 3, skin pwd pt ambulates with an uprigth steady gait, able to speak in clear full sentences pt in no apparent respiratory distress. Physician History: 25 yo wf w chills/subjective fever/sinus pressure/N/V/D/dysuria/foul smelling urine/frequency x2-3 days/Mild infra-umbilical pain. She denies cough/coryza/hematemesis/melena/hematochezia. Pt has a LEEP procedure last week. Timing/Duration: other (2-3 days) Fever Severity: mild (subjerctive) Associated Symptoms: nausea/vomiting, No chest pain, No confusion, No cough, No diaphoresis, No headache, No muscle aches, No rash, No rhinorrhea, No shortness of breath, No sore throat, No stiff neck, No syncope, No weakness Allergies/Adverse Reactions: guaifenesin [From Robitussin] Allergy (Intermediate, Verified 01/11/21 06:57) Hives Penicillins Allergy (Intermediate, Verified 01/11/21 06:57) Hives Sulfa (Sulfonamide Antibiotics) Allergy (Intermediate, Verified 01/11/21 06:57) Hives sarah Allergy (Verified 01/11/21 06:57) promethazine HCl [From Phenergan] Adverse Reaction (Mild, Verified 01/11/21 06:57) Vomiting Home Medications: RX: Amitriptyline HCl 25 mg [Elavil 25 mg] 25 mg PO DAILY 01/27/20 [History] Hx Tetanus, Diphtheria Vaccination/Date Given: Yes Hx Influenza Vaccination/Date Given: No Hx Pneumococcal Vaccination/Date Given: No Immunizations Up to Date: Yes Travel Risk - International Travel Have you traveled outside of the country in past 3 weeks: No - Coronavirus Screening Are you exhibiting any of the following symptoms?: No Close contact with a COVID-19 positive Pt in past 14-21 Days: No - Vaccine Status Have you recieved a Covid-19 vaccination: No - Review of Systems Constitutional: No Symptoms, Fever, Chills, Fatigue Eyes: No Symptoms Ears, Nose, & Throat: No Symptoms, Sinus Drainage Respiratory: No Symptoms Cardiac: No Symptoms Abdominal/Gastrointestinal: No Symptoms, Abdominal Pain, Nausea, Vomiting, Diarrhea Genitourinary Symptoms: No Symptoms, Dysuria, Frequency Musculoskeletal: No Symptoms Skin: No Symptoms Neurological: No Symptoms Psychological: No Symptoms Endocrine: No Symptoms Hematologic/Lymphatic: No Symptoms Immunological/Allergic: No Symptoms - Past Medical History Pertinent Past Medical History: Yes Neurological History: No Pertinent History ENT History: No Pertinent History Cardiac History: No Pertinent History Respiratory History: No Pertinent History Endocrine Medical History: No Pertinent History Musculoskeletal History: No Pertinent History GI Medical History: No Pertinent History History: No Pertinent History Psycho-Social History: Anxiety, Depression Female Reproductive Disorders: No Pertinent History Other Medical History: Anemia. Hyperemesis - Past Surgical History Past Surgical History: Yes Neuro Surgical History: No Pertinent History Cardiac: No Pertinent History Respiratory: No Pertinent History Gastrointestinal: Appendectomy Genitourinary: No Pertinent History Musculoskeletal: No Pertinent History Female Surgical History: Dilation & Curettage, Tubal Ligation - Social History Smoking Status: Never smoker How long have you smoked: 13 years Exposure to second hand smoke: No Drug Use: none Patient Lives Alone: No Significant Family History: no pertinent family hx - Female History Hx Last Menstrual Period: 12/27/2020 Hx Now: No - Nursing Vital Signs Nursing Vital Signs: Initial Vital Signs Temperature 99.7 F 01/17/21 11:28 Pulse Rate 116 H 01/17/21 11:28 Respiratory Rate 22 01/17/21 11:28 Blood Pressure 148/74 01/17/21 11:28 O2 Sat by Pulse Oximetry 100 01/17/21 11:28 Pain Scale Pain Intensity 0 - Physical Exam General Appearance: no apparent distress Eye Exam: PERRL/EOMI, eyes nml inspection ENT Exam: normal ENT inspection, no apparent trauma, TMs normal, pharynx normal Neck Exam: normal inspection, non-tender, supple, full range of motion, trachea midline Respiratory Exam: normal breath sounds, lungs clear, no respiratory distress Cardiovascular/Chest Exam: tachycardia (Mild tachy) Gastrointestinal/Abdominal Exam: soft, normal bowel sounds, tenderness (Mild infra-umbilical) Rectal Exam: deferred Extremity Exam: non-tender, normal range of motion, normal inspection, normal capillary refill, no calf tenderness, no pedal edema Neurologic Exam: alert, oriented x 3, cooperative, news librarian II-XII nml as tested, normal mood/affect, nml cerebellar function, nml station & gait, sensation nml, No motor deficits, No sensory deficit Skin Exam: normal color, warm, dry, No rash Lymphatic: No adenopathy SpO2 Interpretation: normal SpO2: 100 O2 Delivery: Room Air - Course Nursing assessment & vital signs reviewed: Yes Ordered Tests: Active Orders 24 hr Category Date Time Status CBC W DIFF Stat Lab 01/17/21 11:55 Completed CMP Stat Lab 01/17/21 11:55 Completed CULTURE,URINE Stat Lab 01/17/21 11:46 Received INFLUENZA A+B MANNY Stat Lab 01/17/21 11:55 Completed UA W/RFX UR CULTURE Stat Lab 01/17/21 11:46 Completed Medication Summary Discontinued Medications Generic Name Dose Route Start Last Admin Trade Name Josephine PRN Reason Stop Dose Admin Levofloxacin/Dextrose 750 mg in 150 mls @ 100 mls/hr 01/17/21 13:34 01/17/21 15:15 Levofloxacin 750mg/150ml D5w IV 01/17/21 15:03 Infused STAT STA Infusion Levofloxacin/Dextrose Confirm 01/17/21 13:40 Levofloxacin 750mg/150ml D5w Administered 01/17/21 13:41 Dose 750 mg in 150 mls @ ud IV .[facility] Lab/Rad Data: Laboratory Result Diagrams 01/17/21 11:55 01/17/21 11:55 Laboratory Results 01/17/21 01/17/21 01/17/21 Range/Units 11:55 11:55 11:55 WBC (4.0-10.5) K/mm3 RBC (4.1-5.4) M/mm3 Hgb (12.0-16.0) gm/dl Hct (35-47) % MCV (78-100) fl MCH (26-32) pg MCHC (32-36) g/dl RDW (11.5-14.0) % Plt Count (150-450) K/mm3 MPV (7.5-11.0) fl Gran % (36.0-66.0) % Eos # (Auto) (0-0.5) Absolute Lymphs (auto) (1.0-4.6) Absolute Monos (auto) (0.0-1.3) Lymphocytes % (24.0-44.0) % Monocytes % (0.0-12.0) % Eosinophils % (0.00-5.0) % Basophils % (0.0-0.4) % Absolute Granulocytes (1.4-6.9) Basophils # (0-0.4) Sodium 136 L (137-145) mmol/L Potassium 4.2 (3.5-5.1) mmol/L Chloride 103 (98-107) mmol/L Carbon Dioxide 22 (22-30) mmol/L Anion Gap 14.2 (5-15) MEQ/L BUN 7 (7-17) mg/dL Creatinine 0.61 (0.52-1.04) mg/dL Estimated GFR > 60.0 ML/MIN Glucose 87 (74-106) mg/dL Calcium 9.7 (8.4-10.2) mg/dL Total Bilirubin 0.70 (0.2-1.3) mg/dL AST 30 (14-36) U/L ALT 29 (0-35) U/L Alkaline Phosphatase 84 (38-126) U/L Serum Total Protein 7.9 (6.3-8.2) g/dL Albumin 4.5 (3.5-5.0) g/dL Urine Color (YELLOW) Urine Appearance (CLEAR) Urine pH (5-6) Ur Specific [place] (1.005-1.025) Urine Protein (Negative) Urine Ketones (NEGATIVE) Urine Blood (0-5) Myles/ul Urine Nitrite (NEGATIVE) Urine Bilirubin (NEGATIVE) Urine Urobilinogen (0-1) mg/dL Ur Leukocyte Esterase (NEGATIVE) Urine WBC (Auto) (0-5) /HPF Urine RBC (Auto) (0-2) /HPF U Epithel Cells (Auto) (FEW) /HPF Urine Bacteria (Auto) (NEGATIVE) /HPF Urine Mucus (Auto) (NEGATIVE) /HPF Urine Culture Reflexed (NO) Urine Glucose (NEGATIVE) mg/dL Influenza Type A Ag NEGATIVE (NEGATIVE) Influenza Type B Ag NEGATIVE (NEGATIVE) Group A Strep Antibody NOT DETECTED (NEGATIVE) 01/17/21 01/17/21 Range/Units 11:55 11:46 WBC 8.4 (4.0-10.5) K/mm3 RBC 4.93 (4.1-5.4) M/mm3 Hgb 13.9 (12.0-16.0) gm/dl Hct 42.0 (35-47) % MCV 85.2 (78-100) fl MCH 28.2 (26-32) pg MCHC 33.1 (32-36) g/dl RDW 13.9 (11.5-14.0) % Plt Count 323 (150-450) K/mm3 MPV 9.7 (7.5-11.0) fl Gran % 60.3 (36.0-66.0) % Eos # (Auto) 0.23 (0-0.5) Absolute Lymphs (auto) 2.00 (1.0-4.6) Absolute Monos (auto) 1.08 (0.0-1.3) Lymphocytes % 23.9 L (24.0-44.0) % Monocytes % 12.9 H (0.0-12.0) % Eosinophils % 2.8 (0.00-5.0) % Basophils % 0.1 (0.0-0.4) % Absolute Granulocytes 5.04 (1.4-6.9) Basophils # 0.01 (0-0.4) Sodium (137-145) mmol/L Potassium (3.5-5.1) mmol/L Chloride (98-107) mmol/L Carbon Dioxide (22-30) mmol/L Anion Gap (5-15) MEQ/L BUN (7-17) mg/dL Creatinine (0.52-1.04) mg/dL Estimated GFR ML/MIN Glucose (74-106) mg/dL Calcium (8.4-10.2) mg/dL Total Bilirubin (0.2-1.3) mg/dL AST (14-36) U/L ALT (0-35) U/L Alkaline Phosphatase (38-126) U/L Serum Total Protein (6.3-8.2) g/dL Albumin (3.5-5.0) g/dL Urine Color YELLOW (YELLOW) Urine Appearance SLIGHTLY CLOUDY (CLEAR) Urine pH 6.0 (5-6) Ur Specific [place] 1.013 (1.005-1.025) Urine Protein NEGATIVE (Negative) Urine Ketones NEGATIVE (NEGATIVE) Urine Blood SMALL (0-5) Myles/ul Urine Nitrite NEGATIVE (NEGATIVE) Urine Bilirubin NEGATIVE (NEGATIVE) Urine Urobilinogen NEGATIVE (0-1) mg/dL Ur Leukocyte Esterase SMALL (NEGATIVE) Urine WBC (Auto) 6-10 (0-5) /HPF Urine RBC (Auto) 3-5 (0-2) /HPF U Epithel Cells (Auto) RARE (FEW) /HPF Urine Bacteria (Auto) RARE (NEGATIVE) /HPF Urine Mucus (Auto) SLIGHT (NEGATIVE) /HPF Urine Culture Reflexed YES (NO) Urine Glucose NEGATIVE (NEGATIVE) mg/dL Influenza Type A Ag (NEGATIVE) Influenza Type B Ag (NEGATIVE) Group A Strep Antibody (NEGATIVE) - Progress Progress Note: 01/17/21 13:[address] Valdes, wanted to start Doxycycline 100mg BID x 10 days after 1gm IV Rocephin. Pt allergic to PCN and Cephalosporins, so Dr. Valdes wants to give 750mg IV Levaquin. 01/17/21 13:50 Pt refused CV19 testing 01/18/21 00:28 Levaquin infiltrated L arm w mild erythema. IV stopped immediately, and access started RUE. LUE erythema dissipated and pain minimal at best. Discussed with : P[place] Counseled pt/family regarding: lab results, diagnosis - Departure Departure Disposition: Home Clinical Impression: Urinary tract infection Condition: Stable Critical Care Time: No Referrals: MARIE GREY MD [Primary Care Provider] - GA VALDES DO [ACTIVE STAFF] - Instructions: Urinary Tract Infection, Adult (DC) Additional Instructions: Follow up with Dr. Valdes Start Doxycycline twice a day for 10 days Return to ER for temperature greater than 100.5/Increasing abdominal pain Prescriptions: RX: Doxycycline Monohydrate 100 mg PO BID #20 tablet
[2021-01-17 12:13] LABS: Absolute Neutrophil Ct (ANC) 5.04 (1.4-6.9); BASOPHIL % 0.1 % (0.0-0.4); Basophil (Absolute #) 0.01 (0-0.4); Eosinophil % 2.8 % (0.00-5.0); Eosinophil (Absolute #) 0.23 (0-0.5); Hemoglobin 13.9 gm/dl (12.0-16.0); Lymphocytes % 23.9 % (24.0-44.0); Mean Cell Volume 85.2 fl (78-100); Mean Corpuscular Hemoglobin 28.2 pg (26-32); Mean Corpuscular Hgb Concent. 33.1 g/dl (32-36); Mean Platelet Volume 9.7 fl (7.5-11.0); Monocyte (Absolute #) 1.08 (0.0-1.3); Monocytes % 12.9 % (0.0-12.0); Neutrophil % 60.3 % (36.0-66.0); Platelet Count 323 K/mm3 (150-450); Red Blood Count 4.93 M/mm3 (4.1-5.4); Red Cell Distribution Width 13.9 % (11.5-14.0); White Blood Count 8.4 K/mm3 (4.0-10.5)
[2021-01-17 12:19] LABS: ALBUMIN 4.5 g/dL (3.5-5.0); ALKALINE PHOSPHATASE 84 U/L (38-126); ANION GAP 14.2 MEQ/L (5-15); BLOOD UREA NITROGEN 7 mg/dL (7-17); CHLORIDE 103 mmol/L (98-107); Calcium 9.7 mg/dL (8.4-10.2); Carbon Dioxide 22 mmol/L (22-30); Creatinine 1 0.61 mg/dL (0.52-1.04); EST GLOMERULAR FILTRATION RATE > 60.0 ML/MIN; Glucose 87 mg/dL (74-106); Potassium 4.2 mmol/L (3.5-5.1); SGOT/AST 30 U/L (14-36); SGPT/ALT 29 U/L (0-35); SODIUM 136 mmol/L (137-145); Total Protein 7.9 g/dL (6.3-8.2)
[2021-01-17 12:30] LABS: Appearance SLIGHTLY CLOUDY (CLEAR); Bacteria RARE /HPF (NEGATIVE); Bilirubin NEGATIVE (NEGATIVE); Blood SMALL Ery/ul (0-5); Epithelial Cells RARE /HPF (FEW); Glucose NEGATIVE (NEGATIVE); Ketones NEGATIVE (NEGATIVE); Leukocyte Esterase SMALL (NEGATIVE); Mucus SLIGHT /HPF (NEGATIVE); Nitrite NEGATIVE (NEGATIVE); Protein,Urine Dip NEGATIVE (Negative); Specific Gravity 1.013 (1.005-1.025); Urobilinogen NEGATIVE mg/dL (0-1)
[2021-01-17 12:48] LABS: INFLUENZA A NEGATIVE (NEGATIVE); INFLUENZA B NEGATIVE (NEGATIVE)
[2021-01-17] MEDS ORDERED: LEVOFLOXACIN 750MG/150ML D5W 750 MG/150 ML BAG IV STA (13:34)
[2021-01-17] MEDS ORDERED: LEVOFLOXACIN 750MG/150ML D5W 750 MG/150 ML BAG IV ONE (13:40)
[2021-01-17 14:28] VITALS: PULSE 95
[2021-01-17 16:01] VITALS: BP 106/72
[2021-01-18 00:31] VITALS: O2SAT 100
== END 2021-01-17 15:57 | disposition home or self-care (01) ==
LOC: ED 11:20
DX: N39.0 Urinary tract infection, site not specified (principal)
CPT/HCPCS: 36000; 36415; 80053; 81001; 85025; 87086; 87400; 87651; 96365; 99284; J1956

== ENCOUNTER 2024-05-15 00:36 | Emergency (ER) | payer SELFPAY ==
[2024-05-15 01:19] VITALS: RESP 18; TEMP 97.2
[2024-05-15 01:42] LABS: Absolute Neutrophil Ct (ANC) 4.44 x10^3/uL (1.56-6.13); BASOPHIL % 0.4 % (0.1-1.2); Basophil (Absolute #) 0.04 x10^3/uL (0.01-0.08); Eosinophil % 3.1 % (0.7-5.8); Eosinophil (Absolute #) 0.29 x10^3/uL (0.04-0.36); Hematocrit 43.4 % (34.1-44.9); Hemoglobin 14.6 g/dL (11.2-15.7); IMMATURE GRAN # 0.02 x10^3u/L (0.001-0.031); IMMATURE GRAN % 0.2 % (0.001-0.429); Lymphocyte (Absolute #) 3.71 x10^3/uL (1.18-3.74); Lymphocytes % 40.3 % (19.3-51.7); Mean Cell Volume 89.3 fL (79.4-94.8); Mean Corpuscular Hgb Concent. 33.6 g/dL (32.2-35.5); Mean Platelet Volume 9.7 fL (9.4-12.3); Monocyte (Absolute #) 0.71 x10^3/uL (0.24-0.86); Monocytes % 7.7 % (4.7-12.5); Neutrophil % 48.3 % (34.0-71.1); Platelet Count 396 x10^3/uL (182-369); Red Blood Count 4.86 x10^6/uL (3.93-5.22); Red Cell Distribution Width 12.1 % (11.7-14.4); White Blood Count 9.2 x10^3/uL (3.98-10.04)
[2024-05-15 01:52] LABS: ADD URINE CULTURE? NO (NO); Appearance Clear (Clear); Bacteria None Seen /HPF (None Seen); Bilirubin Negative (Negative); Blood Negative (Negative); Epithelial Cells Rare /HPF (None Seen); Glucose, Urine Negative (Negative); Hyaline Casts NONE SEEN /LPF (0-2); Ketones Negative (Negative); Leukocyte Esterase Negative (Negative); Nitrite Negative (Negative); Ph 5.5 (4.6-8.0); Protein,Urine Dip Negative (Negative); RBC 0-2 /HPF (0-5); Specific Gravity <=1.005 (1.005-1.030); Urobilinogen 0.2 mg/dL (0.2); WBC 0-2 /HPF (0-5)
[2024-05-15 01:58] LABS: ALBUMIN 4.6 g/dL (3.5-5.0); ANION GAP 13.8 MEQ/L (5-15); BILIRUBIN,TOTAL 0.4 mg/dL (0.2-1.3); Creatinine 1 0.7 mg/dL (0.52-1.04); Total Protein 7.6 g/dL (6.3-8.2)
[2024-05-15] MEDS ORDERED: TORAdol 30 mg Injection ONE (02:14)
[2024-05-15] MEDS: TORAdol 30 mg Injection IV ONE (02:14)
--- NOTE | 2024-05-15 03:08 | ERPHSYRPT ---
- History of Present Illness Time Seen by Provider: 05/15/24 01:00 Source: patient Exam Limitations: no limitations Patient Subjective Stated Complaint: pt states she is having upper back pain. pt states she has been having this pain for the past 3 years Triage Nursing Assessment: pt ambulated with ease into the er; pt transfer self to cot; pt is axo x4; c/o back pain; pt states 7/10 pain to upper back; good ROM to back; no respiratory distress present; skin PDW; vitals wnl Physician History: 28-year-old female presents to our ED for evaluation of upper back pain radiating to her chest. Pain starts at the thoracic spine between the shoulder blades and radiates anteriorly to breastbone. Patient has a history of chronic back pain but today's pain is uncharacteristic of her usual pain. No trauma no fever. No associated nausea vomiting or diaphoresis. Patient reports she is being worked up for MS. Symptoms are mild to moderate in intensity. Palpation reproduces pain. Pain improved with rest. Patient otherwise feels well. Significant other at bedside. They voiced no other complaints or concerns at t his time. Portions of this note were created with voice recognition technology. There may be grammatical, spelling, punctuation or sound alike errors Timing/Duration: today Severity: moderate Modifying Factors: Improves With: nothing Associated Symptoms: denies symptoms Allergies/Adverse Reactions: guaifenesin [From Robitussin] Allergy (Intermediate, Verified 05/15/24 00:56) Hives Penicillins Allergy (Intermediate, Verified 05/15/24 00:56) Hives Sulfa (Sulfonamide Antibiotics) Allergy (Intermediate, Verified 05/15/24 00:56) Hives sarah Allergy (Verified 05/15/24 00:56) promethazine HCl [From Phenergan] Adverse Reaction (Mild, Verified 05/15/24 00:56) Vomiting Home Medications: Sertraline HCl 150 mg PO DAILY 05/15/24 [History] Topiramate 50 mg PO DAILY 05/15/24 [History] Hx Tetanus, Diphtheria Vaccination/Date Given: No Hx Influenza Vaccination/Date Given: No Hx Pneumococcal Vaccination/Date Given: No Travel Risk - International Travel Have you traveled outside of the country in past 3 weeks: No - Emerging Infectious Disease Are you exhibiting symptoms associated with any current EIDs: No - Review of Systems Constitutional: No Symptoms, No Fever, No Chills Eyes: No Symptoms Ears, Nose, & Throat: No Symptoms Respiratory: No Symptoms, No Cough, No Dyspnea Cardiac: No Symptoms, No Chest Pain, No Edema, No Syncope Abdominal/Gastrointestinal: No Symptoms, No Abdominal Pain, No Nausea, No Vomiting, No Diarrhea Genitourinary Symptoms: No Symptoms, No Dysuria Musculoskeletal: No Symptoms, No Back Pain, No Neck Pain Skin: No Symptoms, No Rash Neurological: No Symptoms, No Dizziness, No Focal Weakness, No Sensory Changes Psychological: No Symptoms Endocrine: No Symptoms Hematologic/Lymphatic: No Symptoms Immunological/Allergic: No Symptoms All Other Systems: Reviewed and Negative - Past Medical History Pertinent Past Medical History: Yes Neurological History: No Pertinent History ENT History: No Pertinent History Cardiac History: No Pertinent History Respiratory History: No Pertinent History Endocrine Medical History: No Pertinent History Musculoskeletal History: No Pertinent History GI Medical History: No Pertinent History History: No Pertinent History Psycho-Social History: Anxiety, Depression Female Reproductive Disorders: No Pertinent History Other Medical History: Anemia. Hyperemesis - Past Surgical History Past Surgical History: Yes Neuro Surgical History: No Pertinent History Cardiac: No Pertinent History Respiratory: No Pertinent History Gastrointestinal: Appendectomy Genitourinary: No Pertinent History Musculoskeletal: No Pertinent History Female Surgical History: Hysterectomy, Dilation & Curettage, Tubal Ligation Significant Family History: no pertinent family hx - Female History Hx Last Menstrual Period: hysterectomy Hx Now: No - Social History Smoking Status: Light tobacco smoker How long have you smoked: 13 years Exposure to second hand smoke: No Drug Use: other Patient Lives Alone: No - Social Determinants of Health Will the patient participate in the screening: Yes Do you worry about a steady place to live?: No Do you have any problems with any of the following?: No known problems In the past 12 months,have you had to go without utilities?: No Transportation Issues: No Has anyone in your support network made you feel unsafe?: No Have you or anyone in your house had to go without enough: No - Nursing Vital Signs Nursing Vital Signs: Initial Vital Signs Temperature 97.2 F 05/15/24 00:58 Pulse Rate 101 H 05/15/24 00:58 Respiratory Rate 18 05/15/24 00:58 Blood Pressure 100/71 05/15/24 00:58 O2 Sat by Pulse Oximetry 99 05/15/24 00:58 Pain Scale Pain Intensity [] 7 Pain Intensity 2 - Physical Exam General Appearance: no apparent distress, alert Eye Exam: PERRL/EOMI, eyes nml inspection Ears, Nose, Throat Exam: normal ENT inspection, TMs normal, pharynx normal, m oist mucous membranes Neck Exam: normal inspection, non-tender, supple, full range of motion Respiratory Exam: normal breath sounds, lungs clear, No respiratory distress Cardiovascular Exam: regular rate/rhythm, normal heart sounds, normal peripheral pulses Gastrointestinal/Abdomen Exam: soft, normal bowel sounds, No tenderness, No mass Back Exam: normal inspection, normal range of motion, No CVA tenderness, No vertebral tenderness Extremity Exam: normal inspection, normal range of motion, pelvis stable Neurologic Exam: alert, oriented x 3, cooperative, normal mood/affect, nml cerebellar function, nml station & gait, sensation nml, No motor deficits Skin Exam: normal color, warm, dry, No rash Lymphatic Exam: No adenopathy SpO2 Interpretation: normal SpO2: 97 O2 Delivery: Room Air - Course Nursing assessment & vital signs reviewed: Yes EKG Interpreted by Me: RATE (75), Sinus Rhythm, NORMAL AXIS, NORMAL INTERVALS, NORMAL QRS - CT Exams Chest CT Interpretation: Tele-radiologist Report (CT chest no acute findings) Thoracic Spine CT Interpretation: Tele-radiologist Report (CT thoracic spine no acute findings) Ordered Tests: Active Orders 24 hr Category Date Time Status Sorter/Assay Tech STAT Care 05/15/24 01:15 Active IV Insertion STAT Care 05/15/24 01:13 Active Pulse Oximetry (ED) STAT Care 05/15/24 01:13 Active CHEST WITHOUT CONTRAST [CT] Stat Exams 05/15/24 02:12 Taken RECONSTRUCTION [CT] Stat Exams 05/15/24 02:13 Completed CBC W DIFF Stat Lab 05/15/24 01:21 Completed CMP Stat Lab 05/15/24 01:21 Completed D-DIMER QUANTITATIVE Stat Lab 05/15/24 01:21 Completed TROPONIN Q4H Lab 05/15/24 01:21 Completed TROPONIN Q4H Lab 05/15/24 05:15 Ordered TROPONIN Q4H Lab 05/15/24 09:15 Ordered UA W/RFX UR CULTURE Stat Lab 05/15/24 01:21 Completed Medication Summary Discontinued Medications Generic Name Dose Route Start Last Admin Trade Name Freq PRN Reason Stop Dose Admin Ketorolac Tromethamine 30 mg 05/15/24 02:05 05/15/24 02:14 Ketorolac Tromethamine 30 Mg/Ml Inj IV 05/15/24 02:06 30 mg STAT ONE Administration Ketorolac Tromethamine Confirm 05/15/24 02:14 Ketorolac Tromethamine 30 Mg/Ml Inj Administered 05/15/24 02:15 Dose 30 mg .ROUTE .STK-MED ONE Lab/Rad Data: Laboratory Result Diagrams 05/15/24 01:21 05/15/24 01:21 Laboratory Results 05/15/24 05/15/24 05/15/24 Range/Units 01:21 01:21 01:21 WBC (3.98-10.04) x10^3/uL RBC (3.93-5.22) x10^6/uL Hgb (11.2-15.7) g/dL Hct (34.1-44.9) % MCV (79.4-94.8) fL MCH (25.6-32.2) pg MCHC (32.2-35.5) g/dL RDW (11.7-14.4) % Plt Count (182-369) x10^3/uL MPV (9.4-12.3) fL Gran % (34.0-71.1) % Immature Gran % (Auto) (0.001-0.429) % Nucleat RBC Rel Count (0.00-0.2) % Eos # (Auto) (0.04-0.36) x10^3/uL Immature Gran # (Auto) (0.001-0.031) x10^3u/L Absolute Lymphs (auto) (1.18-3.74) x10^3/uL Absolute Monos (auto) (0.24-0.86) x10^3/uL Absolute Nucleated RBC (0.00-0.012) x10^3u/L Lymphocytes % (19.3-51.7) % Monocytes % (4.7-12.5) % Eosinophils % (0.7-5.8) % Basophils % (0.1-1.2) % Absolute Granulocytes (1.56-6.13) x10^3/uL Basophils # (0.01-0.08) x10^3/uL D-Dimer 0.30 (0.0-0.50) mg/L Sodium (135-145) mmol/L Potassium (3.5-5.1) mmol/L Chloride (98-107) mmol/L Carbon Dioxide (22-30) mmol/L Anion Gap (5-15) MEQ/L BUN (7-17) mg/dL Creatinine (0.52-1.04) mg/dL Estimated GFR ML/MIN Glucose (74-106) mg/dL Calcium (8.4-10.2) mg/dL Total Bilirubin (0.2-1.3) mg/dL AST (14-36) U/L ALT (0-35) U/L Alkaline Phosphatase (38-126) U/L Troponin I < 0.012 (0.000-0.033) ng/mL Serum Total Protein (6.3-8.2) g/dL Albumin (3.5-5.0) g/dL Urine Color Yellow (Yellow) Urine Appearance Clear (Clear) Urine pH 5.5 (4.6-8.0) Ur Specific [place] <=1.005 (1.005-1.030) Urine Protein Negative (Negative) Urine Glucose (UA) Negative (Negative) mg/dL Urine Ketones Negative (Negative) Urine Blood Negative (Negative) Urine Nitrite Negative (Negative) Urine Bilirubin Negative (Negative) Urine Urobilinogen 0.2 (0.2) mg/dL Ur Leukocyte Esterase Negative (Negative) U Hyaline Cast (Auto) NONE SEEN (0-2) /LPF Urine Microscopic RBC 0-2 (0-5) /HPF Urine Microscopic WBC 0-2 (0-5) /HPF Ur Epithelial Cells Rare (None Seen) /HPF Urine Bacteria None Seen (None Seen) /HPF Urine Culture Reflexed NO (NO) 05/15/24 05/15/24 Range/Units 01:21 01:21 WBC 9.2 (3.98-10.04) x10^3/uL RBC 4.86 (3.93-5.22) x10^6/uL Hgb 14.6 (11.2-15.7) g/dL Hct 43.4 (34.1-44.9) % MCV 89.3 (79.4-94.8) fL MCH 30.0 (25.6-32.2) pg MCHC 33.6 (32.2-35.5) g/dL RDW 12.1 (11.7-14.4) % Plt Count 396 H (182-369) x10^3/uL MPV 9.7 (9.4-12.3) fL Gran % 48.3 (34.0-71.1) % Immature Gran % (Auto) 0.2 (0.001-0.429) % Nucleat RBC Rel Count 0.0 (0.00-0.2) % Eos # (Auto) 0.29 (0.04-0.36) x10^3/uL Immature Gran # (Auto) 0.02 (0.001-0.031) x10^3u/L Absolute Lymphs (auto) 3.71 (1.18-3.74) x10^3/uL Absolute Monos (auto) 0.71 (0.24-0.86) x10^3/uL Absolute Nucleated RBC 0.00 (0.00-0.012) x10^3u/L Lymphocytes % 40.3 (19.3-51.7) % Monocytes % 7.7 (4.7-12.5) % Eosinophils % 3.1 (0.7-5.8) % Basophils % 0.4 (0.1-1.2) % Absolute Granulocytes 4.44 (1.56-6.13) x10^3/uL Basophils # 0.04 (0.01-0.08) x10^3/uL D-Dimer (0.0-0.50) mg/L Sodium 139 (135-145) mmol/L Potassium 4.0 (3.5-5.1) mmol/L Chloride 101 (98-107) mmol/L Carbon Dioxide 28 (22-30) mmol/L Anion Gap 13.8 (5-15) MEQ/L BUN 11 (7-17) mg/dL Creatinine 0.70 (0.52-1.04) mg/dL Estimated GFR 120.0 ML/MIN Glucose 101 (74-106) mg/dL Calcium 10.0 (8.4-10.2) mg/dL Total Bilirubin 0.40 (0.2-1.3) mg/dL AST 26 (14-36) U/L ALT 16 (0-35) U/L Alkaline Phosphatase 77 (38-126) U/L Troponin I (0.000-0.033) ng/mL Serum Total Protein 7.6 (6.3-8.2) g/dL Albumin 4.6 (3.5-5.0) g/dL Urine Color (Yellow) Urine Appearance (Clear) Urine pH (4.6-8.0) Ur Specific [place] (1.005-1.030) Urine Protein (Negative) Urine Glucose (UA) (Negative) mg/dL Urine Ketones (Negative) Urine Blood (Negative) Urine Nitrite (Negative) Urine Bilirubin (Negative) Urine Urobilinogen (0.2) mg/dL Ur Leukocyte Esterase (Negative) U Hyaline Cast (Auto) (0-2) /LPF Urine Microscopic RBC (0-5) /HPF Urine Microscopic WBC (0-5) /HPF Ur Epithelial Cells (None Seen) /HPF Urine Bacteria (None Seen) /HPF Urine Culture Reflexed (NO) - Progress Progress: improved Progress Note: 28-year-old female presents to emergency department for evaluation of thoracic spine pain radiating to her chest. Laboratory workup essentially nonremarkable. Troponin negative. D-dimer negative. CT chest with 3D reconstruction views of the thoracic spine shows mild thoracic spine arthritis. Otherwise no acute findings. CT chest negative for acute intra-abdominal thoracic pathology. Patient received Toradol for pain control. Patient reassessed she was observed sleeping appears comfortable patient reports her pain has improved. Patient states he is ready for discharge. Patient agrees to follow-up with her primary care provider within 48 hours for reevaluation. at bedside. They voiced no other complaints or concerns at this time. [id number] analgesics as needed Complexity of problem addressed is moderate acute complicated. No critical care time. Complex of data reviewed and analyzed is moderate. Test ordered test reviewed results analyzed and correlated clinically with history and physical exam. Risk of complication and or risk of morbidity/mortality patient management is low. Vital stable. Time spent to discharge patient approximately 15 minutes. Plan of care established for shared decision making. No social determinants of health present to impede follow-up. Portions of this note were created with voice recognition technology. There may be grammatical, spelling, punctuation or sound alike errors 05/15/24 04:51 Counseled pt/family regarding: diagnosis, need for follow-up, rad results - Departure Departure Disposition: Home Clinical Impression: Thoracic spine arthritis, Gallstones Condition: Stable Critical Care Time: No Referrals: SALLY CROCKETT NP [Primary Care Provider] - Follow up/PCP as directed Additional Instructions: Discharge/Care Plan SYD DOVE was seen on 05/15/24 in the Emergency Room. The patient was counseled regarding Diagnosis,Lab results, Imaging studies, need for follow up and when to return to the Emergency Room. Prescriptions given: Discharge Note I have spoken with the patient and/or caregivers. I have explained the patient's condition, diagnosis and treatment plan based on the information available to me at this time. I have answered the patient's and/or caregiver's questions and addressed any concerns. The patient and/or caregivers have as good understanding of the patient's diagnosis, condition and treatment plan as can be expected at this point. The vital signs have been stable. The patient's condition is stable and appropriate for discharge from the emergency department. The patient will pursue further outpatient evaluation with the primary care physician or other designated or consulting physician as outlined in the discharge instructions. The patient and/or caregivers are agreeable to this plan of care and follow-up instructions have been explained in detail. The patient and/or caregivers have received these instruction. The patient/and or caregivers are aware that any significant change in condition or worsening of symptoms should prompt an immediate return to this or the closest emergency department or call 911.
[2024-05-15 04:04] VITALS: BP 103/64; PULSE 62
[2024-05-15 04:16] VITALS: O2SAT 97
--- NOTE | 2024-05-15 04:39 | XRAY ---
CLINICAL HISTORY: pain COMPARISON: None. TECHNIQUE: Multiple axial images of CT thoracic spine without contrast was submitted in bone and soft tissue window. One of the following dose reduction techniques were utilized for this exam: Automated exposure control, adjustment of the mA and/or kV according to patient size, and use of iterative reconstruction. FINDINGS: Vertebrae: Mild degenerative changes of the thoracic spine are seen as few marginal osteophytes at C5/6 and C6/7 vertebral end plates. Normal alignment of the thoracic vertebrae. No fractures, lytic or sclerotic lesions. Normal bone density without evidence of osteopenia or osteoporosis. Intervertebral Discs: Normal height of the intervertebral discs. Spinal Canal and Neural Foramina: Spinal canal is of normal caliber with no evidence of spinal stenosis. Neural foramina are patent bilaterally at all levels. No evidence of nerve root compression. Facet Joints: Normal appearance of the facet joints. No evidence of facet arthropathy or significant degenerative changes. Soft Tissues: Normal appearance of the paraspinal soft tissues. No abnormal masses, fluid collections, or signs of inflammation. Upper abdominal cuts show GB stones, for further evaluation as clinically indicated. IMPRESSION: 1. Mild degenerative changes of the thoracic spine seen as few marginal osteophytes, no acute fracture nor dislocation. 2. Overall, Normal CT of the thoracic spine without contrast. 3. Upper abdominal cuts show GB stones, for further evaluation as clinically indicated. Electronically Signed by: Chu Domínguez MD. (05/15/2024 04:34:29 EDT)
--- NOTE | 2024-05-15 06:05 | XRAY ---
CLINICAL HISTORY: pain COMPARISON: none TECHNIQUE: Contiguous axial CT images of the chest were acquired without administration of intravenous contrast. Coronal and sagittal reconstructions were obtained. One of the following dose reduction techniques were utilized for this exam: Automated exposure control, adjustment of the mA and/or kV according to patient size, use of iterative reconstruction. FINDINGS: Lungs: The lung parenchyma is clear with no evidence of consolidation, collapse, or focal lesions. No pulmonary nodules or masses are identified. No evidence of interstitial lung disease or emphysema. No pleural effusion or pleural thickening. Mediastinum: The mediastinum is normal in size and contour. No mediastinal mass or abnormal lymphadenopathy. The heart size is within normal limits. Hilar Structures: The hilar structures appear normal without enlargement or abnormality. Trachea and Main Bronchi: The trachea and main bronchi are patent without evidence of obstruction or abnormality. Chest Wall: The chest wall is unremarkable with no evidence of soft tissue or bony abnormalities. Upper Abdomen: At least two gall bladder calculi are noted 19 mm and 30 mm (one at the fundus, other near the neck). Another 8 mm calcific lesion ? calculus is noted also more medial ? within cystic duct, for US correlation Visualized portions of the liver, spleen, adrenal glands, and kidneys are unremarkable. Bones: Visualized osseous structures are normal, no evidence of fracture or lytic/sclerotic lesions. IMPRESSION: Normal CT of the chest without contrast. Gall bladder calculi , Another 8 mm calcific lesion ? calculus is noted also more medial. within cystic duct, for US correlation Electronically Signed by: Chu Domínguez MD. (05/15/2024 03:58:02 EDT)
== END 2024-05-15 05:00 | disposition home or self-care (01) ==
LOC: ED 00:36
DX: M47.814 Spondylosis without myelopathy or radiculopathy, thoracic region (principal); K80.20 Calculus of gallbladder without cholecystitis without obstruction; M54.6 Pain in thoracic spine; R07.9 Chest pain, unspecified; Z79.899 Other long term (current) drug therapy; Z72.0 Tobacco use
CPT/HCPCS: 36000; 36415; 71250; 76376; 80053; 81001; 84484; 85025; 85379; 93041; 94760; 96374; 99284; J1885

== ENCOUNTER 2024-05-20 16:40 | Emergency (ER) | payer SELFPAY ==
--- NOTE | 2024-05-20 17:24 | ERPHSYRPT ---
- History of Present Illness Time Seen by Provider: 05/20/24 17:21 Source: patient Physician History: 28-year-old female presents to our ED for evaluation of right upper quadrant epigastric pain. Patient states the pain radiates to her back. Patient was in our ED last week for back pain. She was observed to have gallstones. She has yet to follow-up regarding these gallstones. Pain is constant. No trauma no fever. No nausea vomiting or diaphoresis. Symptoms are mild to moderate in intensity. Pain worse with palpation to the right upper quadrant. Pain improved with rest. Patient otherwise feels well. She voices no other complaints or concerns at this time. Portions of this note were created with voice recognition technology. There may be grammatical, spelling, punctuation or sound alike errors Timing/Duration: today Severity: moderate Modifying Factors: Improves With: other (Palpation of right upper quadrant reproduces pain) Associated Symptoms: denies symptoms Allergies/Adverse Reactions: guaifenesin [From Robitussin] Allergy (Intermediate, Verified 05/20/24 17:14) Hives Penicillins Allergy (Intermediate, Verified 05/20/24 17:14) Hives Sulfa (Sulfonamide Antibiotics) Allergy (Intermediate, Verified 05/20/24 17:14) Hives sarah Allergy (Verified 05/20/24 17:14) promethazine HCl [From Phenergan] Adverse Reaction (Mild, Verified 05/20/24 17:14) Vomiting Home Medications: Sertraline HCl 150 mg PO DAILY 05/15/24 [History] Topiramate 50 mg PO DAILY 05/15/24 [History] Hx Tetanus, Diphtheria Vaccination/Date Given: No Hx Influenza Vaccination/Date Given: No Hx Pneumococcal Vaccination/Date Given: No Travel Risk - Emerging Infectious Disease Are you exhibiting symptoms associated with any current EIDs: No - Review of Systems Constitutional: No Symptoms, No Fever, No Chills Eyes: No Symptoms Ears, Nose, & Throat: No Symptoms Respiratory: No Symptoms, No Cough, No Dyspnea Cardiac: No Symptoms, No Chest Pain, No Edema, No Syncope Abdominal/Gastrointestinal: No Symptoms, No Abdominal Pain, No Nausea, No Vomiting, No Diarrhea Genitourinary Symptoms: No Symptoms, No Dysuria Musculoskeletal: No Symptoms, No Back Pain, No Neck Pain Skin: No Symptoms, No Rash Neurological: No Symptoms, No Dizziness, No Focal Weakness, No Sensory Changes Psychological: No Symptoms Endocrine: No Symptoms Hematologic/Lymphatic: No Symptoms Immunological/Allergic: No Symptoms All Other Systems: Reviewed and Negative - Past Medical History Pertinent Past Medical History: Yes Neurological History: No Pertinent History ENT History: No Pertinent History Cardiac History: No Pertinent History Respiratory History: No Pertinent History Endocrine Medical History: No Pertinent History Musculoskeletal History: No Pertinent History GI Medical History: No Pertinent History History: No Pertinent History Psycho-Social History: Anxiety, Depression Female Reproductive Disorders: No Pertinent History Other Medical History: Anemia. Hyperemesis - Past Surgical History Past Surgical History: Yes Neuro Surgical History: No Pertinent History Cardiac: No Pertinent History Respiratory: No Pertinent History Gastrointestinal: Appendectomy Genitourinary: No Pertinent History Musculoskeletal: No Pertinent History Female Surgical History: Hysterectomy, Dilation & Curettage, Tubal Ligation Significant Family History: no pertinent family hx - Female History Hx Last Menstrual Period: hysterectomy Hx Now: No - Social History Smoking Status: Light tobacco smoker How long have you smoked: 13 years Exposure to second hand smoke: No Drug Use: other Patient Lives Alone: No - Social Determinants of Health Will the patient participate in the screening: Yes Do you worry about a steady place to live?: No In the past 12 months,have you had to go without utilities?: No Transportation Issues: No Has anyone in your support network made you feel unsafe?: No Have you or anyone in your house had to go without enough: No - Nursing Vital Signs Nursing Vital Signs: Initial Vital Signs Temperature 97.5 F 05/20/24 17:00 Pulse Rate 82 05/20/24 17:00 Respiratory Rate 12 05/20/24 17:00 Blood Pressure 107/73 05/20/24 17:00 O2 Sat by Pulse Oximetry 99 05/20/24 17:00 Pain Scale Pain Intensity 4 - Physical Exam General Appearance: no apparent distress, alert Eye Exam: PERRL/EOMI, eyes nml inspection Ears, Nose, Throat Exam: normal ENT inspection, TMs normal, pharynx normal, moist mucous membranes Neck Exam: normal inspection, non-tender, supple, full range of motion Respiratory Exam: normal breath sounds, lungs clear, airway intact, No respiratory distress Cardiovascular Exam: regular rate/rhythm, normal heart sounds, normal peripheral pulses Gastrointestinal/Abdomen Exam: soft, normal bowel sounds, tenderness (Right upper quadrant tenderness to palpation), No mass Back Exam: normal inspection, normal range of motion, No CVA tenderness, No vertebral tenderness Extremity Exam: normal inspection, normal range of motion, pelvis stable Neurologic Exam: alert, oriented x 3, cooperative, normal mood/affect, sensation nml, No motor deficits Skin Exam: normal color, warm, dry, No rash Lymphatic Exam: No adenopathy SpO2 Interpretation: normal SpO2: 99 O2 Delivery: Room Air - Course Nursing assessment & vital signs reviewed: Yes - Radiology Ultrasound Exam Gallbladder Ultrasound: discussed w/radiologist (Gallstones observed. Unable to visualize common bile duct. Therefore limited exam.) Ordered Tests: Active Orders 24 hr Category Date Time Status IV Insertion STAT Care 05/20/24 17:19 Active GALLBLADDER [US] Stat Exams 05/20/24 17:20 Taken CBC W DIFF Stat Lab 05/20/24 18:35 Completed CMP Stat Lab 05/20/24 18:35 Completed LIPASE Stat Lab 05/20/24 18:35 Completed Medication Summary Discontinued Medications Generic Name Dose Route Start Last Admin Trade Name Freq PRN Reason Stop Dose Admin Hydrocodone Bitart/Acetaminophen 4 tab 05/20/24 20:05 Hydrocodone/Apap 5/325 1 Tab Tablet PO 05/20/24 20:06 SENT HOME W/ PATIENT ONE Sodium Chloride 1,000 mls @ 999 mls/hr 05/20/24 17:19 05/20/24 18:29 Sodium Chloride 0.9% 1000 Ml IV 05/20/24 18:19 999 mls/hr .Q1H1M STA Administration Sodium Chloride Confirm 05/20/24 18:28 Sodium Chloride 0.9% 1000 Ml Administered 05/20/24 18:29 Dose 1,000 mls @ ud .ROUTE .STK-MED ONE Ketorolac Tromethamine 30 mg 05/20/24 17:19 05/20/24 18:29 Ketorolac Tromethamine 30 Mg/Ml Inj IV 05/20/24 17:20 30 mg STAT ONE Administration Ketorolac Tromethamine Confirm 05/20/24 18:27 Ketorolac Tromethamine 30 Mg/Ml Inj Administered 05/20/24 18:28 Dose 30 mg .ROUTE .STK-MED ONE Lab/Rad Data: Laboratory Result Diagrams 05/20/24 18:35 05/20/24 18:35 Laboratory Results 05/20/24 05/20/24 Range/Units 18:35 18:35 WBC 9.0 (3.98-10.04) x10^3/uL RBC 4.42 (3.93-5.22) x10^6/uL Hgb 13.5 (11.2-15.7) g/dL Hct 40.0 (34.1-44.9) % MCV 90.5 (79.4-94.8) fL MCH 30.5 (25.6-32.2) pg MCHC 33.8 (32.2-35.5) g/dL RDW 11.9 (11.7-14.4) % Plt Count 337 (182-369) x10^3/uL MPV 9.4 (9.4-12.3) fL Gran % 63.4 (34.0-71.1) % Immature Gran % (Auto) 0.2 (0.001-0.429) % Nucleat RBC Rel Count 0.0 (0.00-0.2) % Eos # (Auto) 0.15 (0.04-0.36) x10^3/uL Immature Gran # (Auto) 0.02 (0.001-0.031) x10^3u/L Absolute Lymphs (auto) 2.36 (1.18-3.74) x10^3/uL Absolute Monos (auto) 0.75 (0.24-0.86) x10^3/uL Absolute Nucleated RBC 0.00 (0.00-0.012) x10^3u/L Lymphocytes % 26.2 (19.3-51.7) % Monocytes % 8.3 (4.7-12.5) % Eosinophils % 1.7 (0.7-5.8) % Basophils % 0.2 (0.1-1.2) % Absolute Granulocytes 5.72 (1.56-6.13) x10^3/uL Basophils # 0.02 (0.01-0.08) x10^3/uL Sodium 139 (135-145) mmol/L Potassium 4.5 (3.5-5.1) mmol/L Chloride 101 (98-107) mmol/L Carbon Dioxide 32 H (22-30) mmol/L Anion Gap 10.4 (5-15) MEQ/L BUN 11 (7-17) mg/dL Creatinine 0.84 (0.52-1.04) mg/dL Estimated GFR 96.4 ML/MIN Glucose 95 (74-106) mg/dL Calcium 9.7 (8.4-10.2) mg/dL Total Bilirubin 0.50 (0.2-1.3) mg/dL AST 19 (14-36) U/L ALT 13 (0-35) U/L Alkaline Phosphatase 76 (38-126) U/L Serum Total Protein 7.1 (6.3-8.2) g/dL Albumin 4.2 (3.5-5.0) g/dL Lipase 171 (23-300) U/L - Progress Progress: improved Progress Note: 28-year-old female presents to emergency department for evaluation of back pain. Patient was in our ED last week for similar problems. Physical exam reveals tenderness to the right upper quadrant. Ultrasound reveals gallstones. Laboratory workup otherwise unremarkable. Patient's pain is controlled. Patient reassessed. She has no complaints. In light of the possibility of gallstones causing referred to pain the patient is back patient advised to follow-up with general surgery for further evaluation. Patient received [place] pills to take home. Prescription for [place] Toradol forwarded to patient's pharmacy. Patient resting comfortably. She will follow-up with general surgery as discussed. She voices no other complaints or concerns at this time. Portions of this note were created with voice recognition technology. There may be grammatical, spelling, punctuation or sound alike errors Complexity problem addressed is moderate acute complicated. No critical care time. Complexity of data reviewed and analyzed is moderate. Test ordered test reviewed results analyzed and correlated clinically with history and physical exam. Risk of complication and or risk of morbidity/mortality of patient management is moderate. A prescription for Toradol and [place] forwarded to patient's pharmacy. Vital stable. Time spent to discharge patient approximately 20 minutes. Plan of care established for shared decision making. No social determinants of health present impede follow-up. Portions of this note were created with voice recognition technology. There may be grammatical, spelling, punctuation or sound alike errors 05/20/24 20:07 Counseled pt/family regarding: lab results, diagnosis, need for follow-up, rad results - Departure Departure Disposition: Home Clinical Impression: Gallstones, Back pain Condition: Stable Critical Care Time: No Referrals: SALLY CROCKETT, DAY CARE DIRECTOR [Primary Care Provider] - Follow up/PCP as directed Additional Instructions: Discharge/Care Plan SYD DOVE was seen on 05/20/24 in the Emergency Room. The patient was counseled regarding Diagnosis,Lab results, Imaging studies, need for follow up and when to return to the Emergency Room. Prescriptions given: Discharge Note I have spoken with the patient and/or caregivers. I have explained the patient's condition, diagnosis and treatment plan based on the information available to me at this time. I have answered the patient's and/or caregiver's questions and addressed any concerns. The patient and/or caregivers have as good understanding of the patient's diagnosis, condition and treatment plan as can be expected at this point. The vital signs have been stable. The patient's condition is stable and appropriate for discharge from the emergency department. The patient will pursue further outpatient evaluation with the primary care physician or other designated or consulting physician as outlined in the discharge instructions. The patient and/or caregivers are agreeable to this plan of care and follow-up instructions have been explained in detail. The patient and/or caregivers have received these instruction. The patient/and or caregivers are aware that any significant change in condition or worsening of symptoms should prompt an immediate return to this or the closest emergency department or call 911. Prescriptions: Hydrocodone/APAP 5/325 [[place] 5/325 mg] 1 each PO Q6H PRN PRN #10 tablet MDD 4 PRN Reason: Pain Ketorolac Trometh 10 mg Tab [TORAdol 10 MG TABLET] 10 mg PO TID 5 Days #15 tablet
[2024-05-20 17:31] VITALS: TEMP 97.5
[2024-05-20] MEDS ORDERED: TORAdol 30 mg Injection ONE (18:27)
[2024-05-20] MEDS ORDERED: Sodium Chloride 0.9% 1000 ML 1,000 ML ONE (18:28)
[2024-05-20] MEDS: Sodium Chloride 0.9% 1000 ML 1,000 ML IV STA (18:29)
[2024-05-20] MEDS: TORAdol 30 mg Injection IV ONE (18:29)
[2024-05-20 18:39] LABS: Absolute Neutrophil Ct (ANC) 5.72 x10^3/uL (1.56-6.13); BASOPHIL % 0.2 % (0.1-1.2); Basophil (Absolute #) 0.02 x10^3/uL (0.01-0.08); Eosinophil % 1.7 % (0.7-5.8); Eosinophil (Absolute #) 0.15 x10^3/uL (0.04-0.36); Hemoglobin 13.5 g/dL (11.2-15.7); IMMATURE GRAN # 0.02 x10^3u/L (0.001-0.031); IMMATURE GRAN % 0.2 % (0.001-0.429); Lymphocyte (Absolute #) 2.36 x10^3/uL (1.18-3.74); Lymphocytes % 26.2 % (19.3-51.7); Mean Cell Volume 90.5 fL (79.4-94.8); Mean Corpuscular Hemoglobin 30.5 pg (25.6-32.2); Mean Corpuscular Hgb Concent. 33.8 g/dL (32.2-35.5); Mean Platelet Volume 9.4 fL (9.4-12.3); Monocyte (Absolute #) 0.75 x10^3/uL (0.24-0.86); Monocytes % 8.3 % (4.7-12.5); Neutrophil % 63.4 % (34.0-71.1); Platelet Count 337 x10^3/uL (182-369); Red Blood Count 4.42 x10^6/uL (3.93-5.22); Red Cell Distribution Width 11.9 % (11.7-14.4)
[2024-05-20 18:52] LABS: ALBUMIN 4.2 g/dL (3.5-5.0); ANION GAP 10.4 MEQ/L (5-15); BILIRUBIN,TOTAL 0.5 mg/dL (0.2-1.3); Calcium 9.7 mg/dL (8.4-10.2); Creatinine 1 0.84 mg/dL (0.52-1.04); EST GLOMERULAR FILTRATION RATE 96.4 ML/MIN; Potassium 4.5 mmol/L (3.5-5.1); Total Protein 7.1 g/dL (6.3-8.2)
[2024-05-20 19:23] VITALS: O2SAT 99
[2024-05-20 20:05] VITALS: BP 98/80; PULSE 64; RESP 17
[2024-05-20] MEDS ORDERED: NORCO 5/325 MG ONE (20:11)
[2024-05-20] MEDS: NORCO 5/325 MG PO ONE (20:12)
--- NOTE | 2024-05-20 22:41 | XRAY ---
Indication: Pain. Two-dimensional gallbladder sonogram performed. Comparison: None Visualized gallbladder normally distended with 3 cm gallstone. No abnormal gallbladder wall thickening or pericholecystic fluid. Common bile duct measures 1.9 mm. No intrahepatic biliary distention. Remaining visualized liver, pancreas, and right kidney are sonographically unremarkable. Impression: Cholelithiasis without cholecystitis. Comment: Preliminary report was given.
== END 2024-05-20 20:30 | disposition home or self-care (01) ==
LOC: ED 16:40
DX: K80.20 Calculus of gallbladder without cholecystitis without obstruction (principal); R10.11 Right upper quadrant pain; F17.200 Nicotine dependence, unspecified, uncomplicated; M54.9 Dorsalgia, unspecified
CPT/HCPCS: 36415; 76705; 80053; 83690; 85025; 96374; 99284; J1885; A9270-GY

== ENCOUNTER 2024-05-27 12:29 | Emergency (ER) | payer OTHER ==
[2024-05-27 12:54] VITALS: TEMP 97.6; O2SAT 98
[2024-05-27 13:09] LABS: Absolute Neutrophil Ct (ANC) 7.12 x10^3/uL (1.56-6.13); BASOPHIL % 0.2 % (0.1-1.2); Basophil (Absolute #) 0.02 x10^3/uL (0.01-0.08); Eosinophil % 1.7 % (0.7-5.8); Eosinophil (Absolute #) 0.18 x10^3/uL (0.04-0.36); Hematocrit 41.4 % (34.1-44.9); Hemoglobin 13.8 g/dL (11.2-15.7); IMMATURE GRAN # 0.03 x10^3u/L (0.001-0.031); IMMATURE GRAN % 0.3 % (0.001-0.429); Lymphocyte (Absolute #) 2.22 x10^3/uL (1.18-3.74); Lymphocytes % 21.5 % (19.3-51.7); Mean Corpuscular Hemoglobin 30.3 pg (25.6-32.2); Mean Corpuscular Hgb Concent. 33.3 g/dL (32.2-35.5); Mean Platelet Volume 9.4 fL (9.4-12.3); Monocyte (Absolute #) 0.75 x10^3/uL (0.24-0.86); Monocytes % 7.3 % (4.7-12.5); Platelet Count 328 x10^3/uL (182-369); Red Blood Count 4.55 x10^6/uL (3.93-5.22); Red Cell Distribution Width 12.2 % (11.7-14.4); White Blood Count 10.3 x10^3/uL (3.98-10.04)
[2024-05-27] MEDS ORDERED: Zofran 4 MG/2 ML VIAL ONE (13:09)
[2024-05-27] MEDS ORDERED: MORPHINE SULFATE 2 MG INJ ONE (13:09)
[2024-05-27] MEDS ORDERED: Sodium Chloride 0.9% 1000 ML 1,000 ML ONE (13:09)
--- NOTE | 2024-05-27 13:09 | ERPHSYRPT ---
- History of Present Illness Time Seen by Provider: 05/27/24 13:11 Historian: patient Exam Limitations: no limitations Patient Subjective Stated Complaint: Abdominal pain/RUQ Triage Nursing Assessment: [id number] Physician History: 28-year-old female presents to emergency department for evaluation of intermittent right upper quadrant pain x 3 weeks. Today is patient's third visit to our ED for the same. Patient's last visit she was diagnosed with biliary colic, cholelithiasis. Patient was referred to general surgery and has not been able to get in due to insurance reasons. Patient now has a recurrence of her right upper quadrant pain. Pain described as an ache that is localized. Pain worse with palpation pain improved with rest. No trauma no fever. Symptoms are mild to moderate in intensity. Patient feels mildly nauseous. She otherwise feels well. Patient voices no other complaints or concerns at this time. Portions of this note were created with voice recognition technology. There may be grammatical, spelling, punctuation or sound alike errors Timing/Duration: week(s) Activities at Onset: none Quality: aching Abdominal Pain Onset Location: RUQ Pain Radiation: no radiation Severity of Pain-Max: moderate Severity of Pain-Current: moderate Modifying Factors: Improves With: eating Associated Symptoms: denies symptoms Allergies/Adverse Reactions: guaifenesin [From Robitussin] Allergy (Intermediate, Verified 05/27/24 12:48) Hives Penicillins Allergy (Intermediate, Verified 05/27/24 12:48) Hives Sulfa (Sulfonamide Antibiotics) Allergy (Intermediate, Verified 05/27/24 12:48) Hives sarah Allergy (Verified 05/27/24 12:48) promethazine HCl [From Phenergan] Adverse Reaction (Mild, Verified 05/27/24 12:48) Vomiting Home Medications: RX: Sertraline HCl 150 mg PO DAILY 05/15/24 [History] RX: Topiramate 50 mg PO DAILY 05/15/24 [History] Hx Tetanus, Diphtheria Vaccination/Date Given: No Hx Influenza Vaccination/Date Given: No Hx Pneumococcal Vaccination/Date Given: No Immunizations Up to Date: Yes Travel Risk - International Travel Have you traveled outside of the country in past 3 weeks: No - Emerging Infectious Disease Are you exhibiting symptoms associated with any current EIDs: No Symptoms: Vomitting - Review of Systems Constitutional: No Symptoms, No Fever, No Chills Eyes: No Symptoms Ears, Nose, & Throat: No Symptoms Respiratory: No Symptoms, No Cough, No Dyspnea Cardiac: No Symptoms, No Chest Pain, No Edema, No Syncope Abdominal/Gastrointestinal: No Symptoms, No Abdominal Pain, No Nausea, No Vomiting, No Diarrhea Genitourinary Symptoms: No Symptoms, No Dysuria Musculoskeletal: No Symptoms, No Back Pain, No Neck Pain Skin: No Symptoms, No Rash Neurological: No Symptoms, No Dizziness, No Focal Weakness, No Sensory Changes Psychological: No Symptoms Endocrine: No Symptoms Hematologic/Lymphatic: No Symptoms Immunological/Allergic: No Symptoms All Other Systems: Reviewed and Negative - Past Medical History Pertinent Past Medical History: Yes Neurological History: No Pertinent History ENT History: No Pertinent History Cardiac History: No Pertinent History Respiratory History: No Pertinent History Endocrine Medical History: No Pertinent History Musculoskeletal History: No Pertinent History GI Medical History: No Pertinent History History: No Pertinent History Psycho-Social History: Anxiety, Depression Female Reproductive Disorders: No Pertinent History Other Medical History: Anemia. Hyperemesis - Past Surgical History Past Surgical History: Yes Neuro Surgical History: No Pertinent History Cardiac: No Pertinent History Respiratory: No Pertinent History Gastrointestinal: Appendectomy Genitourinary: No Pertinent History Musculoskeletal: No Pertinent History Female Surgical History: Hysterectomy, Dilation & Curettage, Tubal Ligation Significant Family History: no pertinent family hx - Female History Hx Last Menstrual Period: hysterectomy Hx Now: No - Social History Smoking Status: Light tobacco smoker How long have you smoked: 13 years Exposure to second hand smoke: No Drug Use: other Patient Lives Alone: No - Social Determinants of Health Will the patient participate in the screening: Yes Do you worry about a steady place to live?: No Do you have any problems with any of the following?: No known problems In the past 12 months,have you had to go without utilities?: No Transportation Issues: No Has anyone in your support network made you feel unsafe?: No Have you or anyone in your house had to go without enough: No - Nursing Vital Signs Nursing Vital Signs: Initial Vital Signs Pulse Rate 61 05/27/24 12:48 Respiratory Rate 17 05/27/24 12:48 Blood Pressure 127/70 05/27/24 12:48 O2 Sat by Pulse Oximetry 99 05/27/24 12:48 Pain Scale Pain Intensity 10 - Physical Exam General Appearance: no apparent distress, alert Eye Exam: PERRL/EOMI, eyes nml inspection Ears, Nose, Throat Exam: normal ENT inspection, pharynx normal, moist mucous membranes Neck Exam: normal inspection, non-tender, supple, full range of motion Respiratory Exam: normal breath sounds, lungs clear, No respiratory distress Cardiovascular Exam: regular rate/rhythm, normal heart sounds Gastrointestinal/Abdomen Exam: soft, tenderness (Right upper quadrant tenderness. Overlying soft tissue intact. No signs of trauma), No mass Back Exam: normal inspection, normal range of motion, No CVA tenderness, No vertebral tenderness Extremity Exam: normal inspection, normal range of motion, pelvis stable Neurologic Exam: alert, oriented x 3, cooperative, normal mood/affect, nml cerebellar function, sensation nml, No motor deficits Skin Exam: normal color, warm, dry Lymphatic Exam: No adenopathy SpO2 Interpretation: normal SpO2: 98 O2 Delivery: Room Air - Course Nursing assessment & vital signs reviewed: Yes - Radiology Ultrasound Exam Gallbladder Ultrasound: tele radiology report (No acute findings) Ordered Tests: Active Orders 24 hr Category Date Time Status IV Insertion STAT Care 05/27/24 12:56 Active GALLBLADDER [US] Stat Exams 05/27/24 12:55 Completed CBC W DIFF Stat Lab 05/27/24 13:00 Completed CMP Stat Lab 05/27/24 13:00 Completed LIPASE Stat Lab 05/27/24 13:00 Completed TROPONIN Q4H Lab 05/27/24 13:00 Completed TROPONIN Q4H Lab 05/27/24 17:00 Ordered TROPONIN Q4H Lab 05/27/24 21:00 Ordered UA W/RFX UR CULTURE Stat Lab 05/27/24 13:15 Completed Medication Summary Generic Name Dose Route Start Last Admin Trade Name Freq PRN Reason Stop Dose Admin Sodium Chloride 1,000 mls @ 100 mls/hr 05/27/24 13:00 05/27/24 14:29 Sodium Chloride 0.9% 1000 Ml IV 06/26/24 12:59 Infused .Q10H NADIA Infusion Discontinued Medications Generic Name Dose Route Start Last Admin Trade Name Freq PRN Reason Stop Dose Admin Morphine Sulfate 2 mg 05/27/24 12:56 05/27/24 13:10 Morphine Sulfate 2 Mg/Ml Inj IV 05/27/24 12:57 2 mg STAT ONE Administration Morphine Sulfate Confirm 05/27/24 13:09 Morphine Sulfate 2 Mg/Ml Inj Administered 05/27/24 13:10 Dose 2 mg .ROUTE .STK-MED ONE Ondansetron HCl 4 mg 05/27/24 12:56 05/27/24 13:10 Ondansetron Hcl 4 Mg/2 Ml Vial IV 05/27/24 12:57 4 mg STAT ONE Administration Ondansetron HCl Confirm 05/27/24 13:09 Ondansetron Hcl 4 Mg/2 Ml Vial Administered 05/27/24 13:10 Dose 4 mg .ROUTE .STK-MED ONE Lab/Rad Data: Laboratory Result Diagrams 05/27/24 13:00 05/27/24 13:00 Laboratory Results 05/27/24 05/27/24 05/27/24 Range/Units 13:15 13:00 13:00 WBC (3.98-10.04) x10^3/uL RBC (3.93-5.22) x10^6/uL Hgb (11.2-15.7) g/dL Hct (34.1-44.9) % MCV (79.4-94.8) fL MCH (25.6-32.2) pg MCHC (32.2-35.5) g/dL RDW (11.7-14.4) % Plt Count (182-369) x10^3/uL MPV (9.4-12.3) fL Gran % (34.0-71.1) % Immature Gran % (Auto) (0.001-0.429) % Nucleat RBC Rel Count (0.00-0.2) % Eos # (Auto) (0.04-0.36) x10^3/uL Immature Gran # (Auto) (0.001-0.031) x10^3u/L Absolute Lymphs (auto) (1.18-3.74) x10^3/uL Absolute Monos (auto) (0.24-0.86) x10^3/uL Absolute Nucleated RBC (0.00-0.012) x10^3u/L Lymphocytes % (19.3-51.7) % Monocytes % (4.7-12.5) % Eosinophils % (0.7-5.8) % Basophils % (0.1-1.2) % Absolute Granulocytes (1.56-6.13) x10^3/uL Basophils # (0.01-0.08) x10^3/uL Sodium 139 (135-145) mmol/L Potassium 4.3 (3.5-5.1) mmol/L Chloride 105 (98-107) mmol/L Carbon Dioxide 29 (22-30) mmol/L Anion Gap 10.0 (5-15) MEQ/L BUN 10 (7-17) mg/dL Creatinine 0.69 (0.52-1.04) mg/dL Estimated GFR 120.4 ML/MIN Glucose 94 (74-106) mg/dL Calcium 9.1 (8.4-10.2) mg/dL Total Bilirubin 0.90 (0.2-1.3) mg/dL AST 104 H (14-36) U/L ALT 35 (0-35) U/L Alkaline Phosphatase 104 (38-126) U/L Troponin I < 0.012 (0.000-0.033) ng/mL Serum Total Protein 6.5 (6.3-8.2) g/dL Albumin 3.9 (3.5-5.0) g/dL Lipase 90 (23-300) U/L Urine Color Yellow (Yellow) Urine Appearance Clear (Clear) Urine pH 7.0 (4.6-8.0) Ur Specific [place] 1.020 (1.005-1.030) Urine Protein Negative (Negative) Urine Glucose (UA) Negative (Negative) mg/dL Urine Ketones Negative (Negative) Urine Blood Negative (Negative) Urine Nitrite Negative (Negative) Urine Bilirubin Negative (Negative) Urine Urobilinogen 0.2 (0.2) mg/dL Ur Leukocyte Esterase Negative (Negative) U Hyaline Cast (Auto) NONE SEEN (0-2) /LPF Urine Microscopic RBC 0-2 (0-5) /HPF Urine Microscopic WBC 3-5 (0-5) /HPF Ur Epithelial Cells Moderate A (None Seen) /HPF Urine Bacteria Few A (None Seen) /HPF Urine Culture Reflexed NO (NO) 05/27/24 Range/Units 13:00 WBC 10.3 H (3.98-10.04) x10^3/uL RBC 4.55 (3.93-5.22) x10^6/uL Hgb 13.8 (11.2-15.7) g/dL Hct 41.4 (34.1-44.9) % MCV 91.0 (79.4-94.8) fL MCH 30.3 (25.6-32.2) pg MCHC 33.3 (32.2-35.5) g/dL RDW 12.2 (11.7-14.4) % Plt Count 328 (182-369) x10^3/uL MPV 9.4 (9.4-12.3) fL Gran % 69.0 (34.0-71.1) % Immature Gran % (Auto) 0.3 (0.001-0.429) % Nucleat RBC Rel Count 0.0 (0.00-0.2) % Eos # (Auto) 0.18 (0.04-0.36) x10^3/uL Immature Gran # (Auto) 0.03 (0.001-0.031) x10^3u/L Absolute Lymphs (auto) 2.22 (1.18-3.74) x10^3/uL Absolute Monos (auto) 0.75 (0.24-0.86) x10^3/uL Absolute Nucleated RBC 0.00 (0.00-0.012) x10^3u/L Lymphocytes % 21.5 (19.3-51.7) % Monocytes % 7.3 (4.7-12.5) % Eosinophils % 1.7 (0.7-5.8) % Basophils % 0.2 (0.1-1.2) % Absolute Granulocytes 7.12 H (1.56-6.13) x10^3/uL Basophils # 0.02 (0.01-0.08) x10^3/uL Sodium (135-145) mmol/L Potassium (3.5-5.1) mmol/L Chloride (98-107) mmol/L Carbon Dioxide (22-30) mmol/L Anion Gap (5-15) MEQ/L BUN (7-17) mg/dL Creatinine (0.52-1.04) mg/dL Estimated GFR ML/MIN Glucose (74-106) mg/dL Calcium (8.4-10.2) mg/dL Total Bilirubin (0.2-1.3) mg/dL AST (14-36) U/L ALT (0-35) U/L Alkaline Phosphatase (38-126) U/L Troponin I (0.000-0.033) ng/mL Serum Total Protein (6.3-8.2) g/dL Albumin (3.5-5.0) g/dL Lipase (23-300) U/L Urine Color (Yellow) Urine Appearance (Clear) Urine pH (4.6-8.0) Ur Specific [place] (1.005-1.030) Urine Protein (Negative) Urine Glucose (UA) (Negative) mg/dL Urine Ketones (Negative) Urine Blood (Negative) Urine Nitrite (Negative) Urine Bilirubin (Negative) Urine Urobilinogen (0.2) mg/dL Ur Leukocyte Esterase (Negative) U Hyaline Cast (Auto) (0-2) /LPF Urine Microscopic RBC (0-5) /HPF Urine Microscopic WBC (0-5) /HPF Ur Epithelial Cells (None Seen) /HPF Urine Bacteria (None Seen) /HPF Urine Culture Reflexed (NO) - Progress Progress: improved Progress Note: 28-year-old female with right upper quadrant pain. Patient is known cholelithiasis. Patient presents with biliary colic. Laboratory workup essentially nonremarkable. Repeat right upper quadrant ultrasound negative for acute cholecystitis. Pain well-controlled. Patient did not follow-up with his surgeon as planned due to insurance issues. We have since resolved patient's insurance problems while in our ED. Patient will follow-up with general surgery for reevaluation. Pain well-controlled at this time. She voices no other complaints or concerns no indication for further workup. Portions of this note were created with voice recognition technology. There may be grammatical, spelling, punctuation or sound alike errors Complexity of problem addressed is moderate acute complicated. No critical care time. Complex of data reviewed and analyzed is moderate. Test ordered test reviewed results analyzed and correlated clinically with history and physical exam. Risk of complication and or risk of morbidity/mortality patient management is high. Patient received morphine in our ED IV. A prescription for [place] as well as Zofran forwarded to patient's pharmacy. Vital stable time spent to discharge patient is approximately 15 minutes. Plan of care established for shared decision making. No social determinants of health present to impede follow-up. Portions of this note were created with voice recognition technology. There may be grammatical, spelling, punctuation or sound alike errors 05/27/24 15:18 Counseled pt/family regarding: lab results, diagnosis, need for follow-up, rad results - Departure Departure Disposition: Home Clinical Impression: Cholelithiasis, Biliary colic Condition: Stable Critical Care Time: No Referrals: SALLY CROCKETT, [employer]LE[employer] OPERATOR [Primary Care Provider] - Follow up/PCP as directed Additional Instructions: Discharge/Care Plan SYD DOVE was seen on 05/27/24 in the Emergency Room. The patient was counseled regarding Diagnosis,Lab results, Imaging studies, need for follow up and when to return to the Emergency Room. Prescriptions given: Discharge Note I have spoken with the patient and/or caregivers. I have explained the patient's condition, diagnosis and treatment plan based on the information available to me at this time. I have answered the patient's and/or caregiver's questions and addressed any concerns. The patient and/or caregivers have as good understanding of the patient's diagnosis, condition and treatment plan as can be expected at this point. The vital signs have been stable. The patient's condition is stable and appropriate for discharge from the emergency department. The patient will pursue further outpatient evaluation with the primary care physician or other designated or consulting physician as outlined in the dischar ge instructions. The patient and/or caregivers are agreeable to this plan of care and follow-up instructions have been explained in detail. The patient and/or caregivers have received these instruction. The patient/and or caregivers are aware that any significant change in condition or worsening of symptoms should prompt an immediate return to this or the closest emergency department or call 911. Prescriptions: Hydrocodone/APAP 5/325 [[place] 5/325 mg] 1 each PO Q6H PRN PRN #10 tablet MDD 4 PRN Reason: Pain Ondansetron ODT 4 MG [Zofran Odt 4 mg] 4 mg PO Q6H PRN PRN #10 tablet PRN Reason: Vomiting
[2024-05-27] MEDS: Zofran 4 MG/2 ML VIAL IV ONE (13:10)
[2024-05-27] MEDS: Sodium Chloride 0.9% 1000 ML 1,000 ML IV SCH (13:10)
[2024-05-27] MEDS: MORPHINE SULFATE 2 MG INJ IV ONE (13:10)
[2024-05-27 13:45] LABS: Appearance Clear (Clear); Bacteria Few /HPF (None Seen); Bilirubin Negative (Negative); Blood Negative (Negative); Epithelial Cells Moderate /HPF (None Seen); Glucose, Urine Negative (Negative); Hyaline Casts NONE SEEN /LPF (0-2); Ketones Negative (Negative); Leukocyte Esterase Negative (Negative); Nitrite Negative (Negative); Protein,Urine Dip Negative (Negative); RBC 0-2 /HPF (0-5); Urobilinogen 0.2 mg/dL (0.2)
[2024-05-27 13:46] LABS: ADD URINE CULTURE? NO (NO)
[2024-05-27 14:04] LABS: ALBUMIN 3.9 g/dL (3.5-5.0); BILIRUBIN,TOTAL 0.9 mg/dL (0.2-1.3); Calcium 9.1 mg/dL (8.4-10.2); Creatinine 1 0.69 mg/dL (0.52-1.04); EST GLOMERULAR FILTRATION RATE 120.4 ML/MIN; Potassium 4.3 mmol/L (3.5-5.1); Total Protein 6.5 g/dL (6.3-8.2)
--- NOTE | 2024-05-27 15:00 | XRAY ---
Indication: Pain. Two-dimensional gallbladder sonogram performed. Comparison: May 10, 2024 Gallbladder is now contracted again with 3 cm gallstone. No pericholecystic fluid. Common bile duct measures 5.5 mm. Remaining visualized liver, pancreas, and right kidney again sonographically unremarkable. Impression: Contracted gallbladder with stable 3 cm gallstone. Again negative for acute cholecystitis or biliary distention.
[2024-05-27 15:20] VITALS: BP 104/71; PULSE 70; RESP 15
== END 2024-05-27 15:27 | disposition home or self-care (01) ==
LOC: ED 12:29
DX: K80.70 Calculus of gallbladder and bile duct without cholecystitis without obstruction (principal); R10.11 Right upper quadrant pain; Z79.891 Long term (current) use of opiate analgesic; Z79.899 Other long term (current) drug therapy; Z72.0 Tobacco use
CPT/HCPCS: 36000; 36415; 76705; 80053; 81001; 83690; 84484; 85025; 96374; 96375; 99284; J2270; J2405

== ENCOUNTER 2024-06-12 16:34 | Emergency (ER) | payer OTHER ==
[2024-06-12 17:44] VITALS: TEMP 97.7
--- NOTE | 2024-06-12 18:02 | ERPHSYRPT ---
- History of Present Illness Time Seen by Provider: 06/12/24 17:20 Historian: patient Exam Limitations: no limitations Patient Subjective Stated Complaint: C/O sudden onset abdominal pain around 2pm today. Patient had surgery for gallbladder removal approx one week ago in [facility]. Triage Nursing Assessment: Patient brought back to ER in a W/C. She is alert and oriented; anxious and yelling. Skin tone normal. Surgical incisions to abdomen healing well; no s/s of infection. NO SOB. Physician History: 28-year-old female with postop day 7 laparoscopic cholecystectomy at [facility] presented in the ER with complaint of upper abdominal pain sudden onset around 2 PM severe sharp shooting pain, aggravation with minimal movements palpation with associated nausea and dry heaving. Patient reports no diarrhea but does have some element of constipation since surgery. Patient denies any fever or chills. Allergies/Adverse Reactions: guaifenesin [From Robitussin] Allergy (Intermediate, Verified 06/12/24 17:28) Hives Penicillins Allergy (Intermediate, Verified 06/12/24 17:28) Hives Sulfa (Sulfonamide Antibiotics) Allergy (Intermediate, Verified 06/12/24 17:28) Hives sarah Allergy (Verified 06/12/24 17:28) promethazine HCl [From Phenergan] Adverse Reaction (Mild, Verified 06/12/24 17:28) Vomiting Home Medications: Sertraline HCl 150 mg PO DAILY 05/15/24 [History] Topiramate 50 mg PO DAILY 05/15/24 [History] Hydrocodone/Acetaminophen [Hydrocodone-Acetamin 7.5-325] 1 tab PO Q8H PRN PRN 06/12/24 [History] Hx Tetanus, Diphtheria Vaccination/Date Given: Yes Hx Influenza Vaccination/Date Given: No Hx Pneumococcal Vaccination/Date Given: No Immunizations Up to Date: Yes Travel Risk - International Travel Have you traveled outside of the country in past 3 weeks: No - Emerging Infectious Disease Are you exhibiting symptoms associated with any current EIDs: Yes Symptoms: Abdominal Pain - Review of Systems Constitutional: No Symptoms Eyes: No Symptoms Ears, Nose, & Throat: No Symptoms Respiratory: No Symptoms Cardiac: No Symptoms Abdominal/Gastrointestinal: Abdominal Pain, Nausea Genitourinary Symptoms: No Symptoms Musculoskeletal: No Symptoms Skin: No Symptoms Neurological: No Symptoms Endocrine: No Symptoms Hematologic/Lymphatic: No Symptoms - Past Medical History Pertinent Past Medical History: Yes Neurological History: No Pertinent History ENT History: No Pertinent History Cardiac History: No Pertinent History Respiratory History: No Pertinent History Endocrine Medical History: No Pertinent History Musculoskeletal History: No Pertinent History GI Medical History: Gallbladder Disease History: No Pertinent History Psycho-Social History: Anxiety, Depression Female Reproductive Disorders: No Pertinent History Other Medical History: Anemia, Hyperemesis - Past Surgical History Past Surgical History: Yes Neuro Surgical History: No Pertinent History Cardiac: No Pertinent History Respiratory: No Pertinent History Gastrointestinal: Appendectomy, Cholecystectomy Genitourinary: No Pertinent History Musculoskeletal: No Pertinent History Female Surgical History: Hysterectomy, Dilation & Curettage, Tubal Ligation Significant Family History: no pertinent family hx - Female History Hx Last Menstrual Period: hysterectomy Hx Now: (unkn) - Social History Smoking Status: Former smoker How long have you smoked: 13 years Exposure to second hand smoke: No Drug Use: other Patient Lives Alone: No - Social Determinants of Health Will the patient participate in the screening: Yes Do you worry about a steady place to live?: No Do you have any problems with any of the following?: No known problems In the past 12 months,have you had to go without utilities?: No Transportation Issues: No Has anyone in your support network made you feel unsafe?: No Have you or anyone in your house had to go without enough: No - Nursing Vital Signs Nursing Vital Signs: Initial Vital Signs Temperature 97.7 F 06/12/24 17:25 Pulse Rate 79 06/12/24 17:25 Respiratory Rate 18 06/12/24 17:25 Blood Pressure 138/109 06/12/24 17:25 O2 Sat by Pulse Oximetry 99 06/12/24 17:25 Pain Scale Pain Intensity 6 - Physical Exam General Appearance: no apparent distress, alert Eye Exam: PERRL/EOMI Ears, Nose, Throat Exam: pharynx normal Neck Exam: normal inspection, supple, full range of motion Respiratory Exam: normal breath sounds, lungs clear Cardiovascular Exam: regular rate/rhythm, normal heart sounds Gastrointestinal/Abdomen Exam: soft, normal bowel sounds, tenderness (generalized tenderness with some guarding), guarding Back Exam: normal inspection, normal range of motion Extremity Exam: normal inspection, normal range of motion Neurologic Exam: alert, oriented x 3 Skin Exam: normal color SpO2 Interpretation: normal SpO2: 98 O2 Delivery: Room Air Ordered Tests: Active Orders 24 hr Category Date Time Status IV Insertion STAT Care 06/12/24 17:34 Active NPO (ED) STAT Care 06/12/24 17:34 Active ABDOMEN AND PELVIS W CONTRAST [CT] Stat Exams 06/12/24 17:35 Taken CBC W DIFF Stat Lab 06/12/24 18:00 Completed CMP Stat Lab 06/12/24 18:00 Completed CULTURE,URINE Stat Lab 06/12/24 17:45 Received HCG QUALITATIVE, URINE Stat Lab 06/12/24 18:00 Completed LIPASE Stat Lab 06/12/24 18:00 Completed Lactic Acid Stat Lab 06/12/24 17:34 Completed UA W/RFX UR CULTURE Stat Lab 06/12/24 17:45 Completed Medication Summary Discontinued Medications Generic Name Dose Route Start Last Admin Trade Name Freq PRN Reason Stop Dose Admin Sodium Chloride 1,000 mls @ 999 mls/hr 06/12/24 17:34 06/12/24 18:07 Sodium Chloride 0.9% 1000 Ml IV 06/12/24 18:34 999 mls/hr .Q1H1M STA Administration Sodium Chloride Confirm 06/12/24 18:05 Sodium Chloride 0.9% 1000 Ml Administered 06/12/24 18:06 Dose 1,000 mls @ ud .ROUTE .STK-MED ONE Ketorolac Tromethamine 30 mg 06/12/24 17:34 06/12/24 18:13 Ketorolac Tromethamine 30 Mg/Ml Inj IV 06/12/24 17:35 30 mg STAT ONE Administration Ketorolac Tromethamine Confirm 06/12/24 18:05 Ketorolac Tromethamine 30 Mg/Ml Inj Administered 06/12/24 18:06 Dose 30 mg .ROUTE .STK-MED ONE Morphine Sulfate 4 mg 06/12/24 17:34 06/12/24 18:12 Morphine Sulfate 4 Mg/Ml Injection IV 06/12/24 17:35 4 mg STAT ONE Administration Morphine Sulfate Confirm 06/12/24 18:05 Morphine Sulfate 4 Mg/Ml Injection Administered 06/12/24 18:06 Dose 4 mg .ROUTE .STK-MED ONE Morphine Sulfate 4 mg 06/12/24 21:07 06/12/24 21:13 Morphine Sulfate 4 Mg/Ml Injection IV 06/12/24 21:08 4 mg STAT ONE Administration Morphine Sulfate Confirm 06/12/24 21:11 Morphine Sulfate 4 Mg/Ml Injection Administered 06/12/24 21:12 Dose 4 mg .ROUTE .STK-MED ONE Ondansetron HCl 4 mg 06/12/24 17:34 06/12/24 18:09 Ondansetron Hcl 4 Mg/2 Ml Vial IV 06/12/24 17:35 4 mg STAT ONE Administration Ondansetron HCl Confirm 06/12/24 18:05 Ondansetron Hcl 4 Mg/2 Ml Vial Administered 06/12/24 18:06 Dose 4 mg .ROUTE .STK-MED ONE Lab/Rad Data: Laboratory Result Diagrams 06/12/24 18:00 06/12/24 18:00 Laboratory Results 06/12/24 06/12/24 06/12/24 Range/Units 18:00 18:00 18:00 WBC 12.9 H (3.98-10.04) x10^3/uL RBC 4.99 (3.93-5.22) x10^6/uL Hgb 15.2 (11.2-15.7) g/dL Hct 44.4 (34.1-44.9) % MCV 89.0 (79.4-94.8) fL MCH 30.5 (25.6-32.2) pg MCHC 34.2 (32.2-35.5) g/dL RDW 11.8 (11.7-14.4) % Plt Count 602 H (182-369) x10^3/uL MPV 9.5 (9.4-12.3) fL Gran % 85.8 H (34.0-71.1) % Immature Gran % (Auto) 0.3 (0.001-0.429) % Nucleat RBC Rel Count 0.0 (0.00-0.2) % Eos # (Auto) 0.08 (0.04-0.36) x10^3/uL Immature Gran # (Auto) 0.04 H (0.001-0.031) x10^3u/L Absolute Lymphs (auto) 0.97 L (1.18-3.74) x10^3/uL Absolute Monos (auto) 0.69 (0.24-0.86) x10^3/uL Absolute Nucleated RBC 0.00 (0.00-0.012) x10^3u/L Lymphocytes % 7.5 L (19.3-51.7) % Monocytes % 5.3 (4.7-12.5) % Eosinophils % 0.6 L (0.7-5.8) % Basophils % 0.5 (0.1-1.2) % Absolute Granulocytes 11.10 H (1.56-6.13) x10^3/uL Basophils # 0.06 (0.01-0.08) x10^3/uL Sodium 140 (135-145) mmol/L Potassium 4.0 (3.5-5.1) mmol/L Chloride 99 (98-107) mmol/L Carbon Dioxide 23 (22-30) mmol/L Anion Gap 21.5 H (5-15) MEQ/L BUN 7 (7-17) mg/dL Creatinine 0.59 (0.52-1.04) mg/dL Estimated GFR 125.0 ML/MIN Glucose 131 H (74-106) mg/dL Lactic Acid (0.4-2.0) Calcium 10.4 H (8.4-10.2) mg/dL Total Bilirubin 2.10 H (0.2-1.3) mg/dL AST 44 H (14-36) U/L ALT 76 H (0-35) U/L Alkaline Phosphatase 420 H (38-126) U/L Serum Total Protein 8.5 H (6.3-8.2) g/dL Albumin 4.7 (3.5-5.0) g/dL Lipase 64 (23-300) U/L Urine Color (Yellow) Urine Appearance (Clear) Urine pH (4.6-8.0) Ur Specific [place] (1.005-1.030) Urine Protein (Negative) Urine Glucose (UA) (Negative) mg/dL Urine Ketones (Negative) Urine Blood (Negative) Urine Nitrite (Negative) Urine Bilirubin (Negative) Urine Urobilinogen (0.2) mg/dL Ur Leukocyte Esterase (Negative) U Hyaline Cast (Auto) (0-2) /LPF Urine Microscopic RBC (0-5) /HPF Urine Microscopic WBC (0-5) /HPF Ur Epithelial Cells (None Seen) /HPF Urine Bacteria (None Seen) /HPF Urine Culture Reflexed (NO) Urine HCG, Qual NEGATIVE (NEGATIVE) 10/10/24 10/10/24 Range/Units 17:45 17:34 WBC (3.98-10.04) x10^3/uL RBC (3.93-5.22) x10^6/uL Hgb (11.2-15.7) g/dL Hct (34.1-44.9) % MCV (79.4-94.8) fL MCH (25.6-32.2) pg MCHC (32.2-35.5) g/dL RDW (11.7-14.4) % Plt Count (182-369) x10^3/uL MPV (9.4-12.3) fL Gran % (34.0-71.1) % Immature Gran % (Auto) (0.001-0.429) % Nucleat RBC Rel Count (0.00-0.2) % Eos # (Auto) (0.04-0.36) x10^3/uL Immature Gran # (Auto) (0.001-0.031) x10^3u/L Absolute Lymphs (auto) (1.18-3.74) x10^3/uL Absolute Monos (auto) (0.24-0.86) x10^3/uL Absolute Nucleated RBC (0.00-0.012) x10^3u/L Lymphocytes % (19.3-51.7) % Monocytes % (4.7-12.5) % Eosinophils % (0.7-5.8) % Basophils % (0.1-1.2) % Absolute Granulocytes (1.56-6.13) x10^3/uL Basophils # (0.01-0.08) x10^3/uL Sodium (135-145) mmol/L Potassium (3.5-5.1) mmol/L Chloride (98-107) mmol/L Carbon Dioxide (22-30) mmol/L Anion Gap (5-15) MEQ/L BUN (7-17) mg/dL Creatinine (0.52-1.04) mg/dL Estimated GFR ML/MIN Glucose (74-106) mg/dL Lactic Acid 1.5 (0.4-2.0) Calcium (8.4-10.2) mg/dL Total Bilirubin (0.2-1.3) mg/dL AST (14-36) U/L ALT (0-35) U/L Alkaline Phosphatase (38-126) U/L Serum Total Protein (6.3-8.2) g/dL Albumin (3.5-5.0) g/dL Lipase (23-300) U/L Urine Color Dark Yellow A (Yellow) Urine Appearance Cloudy A (Clear) Urine pH 5.5 (4.6-8.0) Ur Specific [place] 1.025 (1.005-1.030) Urine Protein Trace A (Negative) Urine Glucose (UA) Negative (Negative) mg/dL Urine Ketones 40 A (Negative) Urine Blood Negative (Negative) Urine Nitrite Negative (Negative) Urine Bilirubin Moderate A (Negative) Urine Urobilinogen 2.0 A (0.2) mg/dL Ur Leukocyte Esterase Trace A (Negative) U Hyaline Cast (Auto) 3-5 A (0-2) /LPF Urine Microscopic RBC 0-2 (0-5) /HPF Urine Microscopic WBC 6-10 A (0-5) /HPF Ur Epithelial Cells Few (None Seen) /HPF Urine Bacteria Moderate A (None Seen) /HPF Urine Culture Reflexed YES (NO) Urine HCG, Qual (NEGATIVE) - Progress Progress: improved, pain not gone completely, re-examined Progress Note: 06/12/24 21:26 28-year-old is evaluated in the ER for abdominal pain post cholecystectomy almost a week ago from [facility] is evaluated for worsening pain since 2 PM. She has significant tenderness and guarding in the upper abdomen. Given fluids and symptomatic treatment, on reevaluation her pain is better but not completely resolved. Workup showed white count of 12, mildly elevated transaminases, total bili of 2.1. Normal renal functions. CT abdomen pelvis with contrast showed seroma in the gallbladder fossa and some in the pelvis but does have a stone in the CBD 0.5 x 0.8 x 2 cm with dilatation. Patient has normal lipase level. I believe patient needs ERCP and further evaluation. I [place] called [facility] were not accepting any transfers at this time. No ERCP services are available in [place], discussed with patient and family and recommended transfer for higher level of care and they are okay with it. Discussed with Dr. Khan at [facility], reviewed history, workup and agreed with transfer. Will keep patient n.p.o. Counseled pt/family regarding: lab results, diagnosis, need for follow-up, rad results Medical Desision Making - Independent Historian Additional History obtained from: Spouse - Discussion of managment Care discussed with:: hospitalist (Dr. Khan hospitalist [place]) Reviewed:: Test results Agreed on:: Treatment plan Will see patient: in hospital - Diagnostic Testing Diagnostic test were ordered, analyzed, and reviewed by me: Yes Radiological Interpretation: Reviewed by me, Teleradiologist Report - Risk of complications The pt has a mod risk of morbidity or mortality based on: Need for prescription drug management The pt has a high risk of morbidity or mortality based on: Decision regarding hospitilization or escalation of hosp level of care - Departure Departure Disposition: Transfer Clinical Impression: Choledocholithiasis Condition: Stable Critical Care Time: No Referrals: SALLY CROCKETT NP [Primary Care Provider] - Follow up/PCP as directed
[2024-06-12 18:04] LABS: BASOPHIL % 0.5 % (0.1-1.2); Basophil (Absolute #) 0.06 x10^3/uL (0.01-0.08); Eosinophil % 0.6 % (0.7-5.8); Eosinophil (Absolute #) 0.08 x10^3/uL (0.04-0.36); Hematocrit 44.4 % (34.1-44.9); Hemoglobin 15.2 g/dL (11.2-15.7); IMMATURE GRAN # 0.04 x10^3u/L (0.001-0.031); IMMATURE GRAN % 0.3 % (0.001-0.429); Lymphocyte (Absolute #) 0.97 x10^3/uL (1.18-3.74); Lymphocytes % 7.5 % (19.3-51.7); Mean Corpuscular Hemoglobin 30.5 pg (25.6-32.2); Mean Corpuscular Hgb Concent. 34.2 g/dL (32.2-35.5); Mean Platelet Volume 9.5 fL (9.4-12.3); Monocyte (Absolute #) 0.69 x10^3/uL (0.24-0.86); Monocytes % 5.3 % (4.7-12.5); Neutrophil % 85.8 % (34.0-71.1); Platelet Count 602 x10^3/uL (182-369); Red Blood Count 4.99 x10^6/uL (3.93-5.22); Red Cell Distribution Width 11.8 % (11.7-14.4); White Blood Count 12.9 x10^3/uL (3.98-10.04)
[2024-06-12 18:05] LABS: Appearance Cloudy (Clear); Bacteria Moderate /HPF (None Seen); Bilirubin Moderate (Negative); Blood Negative (Negative); Epithelial Cells Few /HPF (None Seen); Glucose, Urine Negative (Negative); Ketones 40 (Negative); Leukocyte Esterase Trace (Negative); Nitrite Negative (Negative); Ph 5.5 (4.6-8.0); Protein,Urine Dip Trace (Negative); RBC 0-2 /HPF (0-5); Specific Gravity 1.025 (1.005-1.030)
[2024-06-12] MEDS ORDERED: Sodium Chloride 0.9% 1000 ML 1,000 ML ONE (18:05)
[2024-06-12] MEDS ORDERED: MORPHINE SULFATE 4 MG INJ ONE ×2 (18:05→21:11)
[2024-06-12] MEDS ORDERED: Zofran 4 MG/2 ML VIAL ONE (18:05)
[2024-06-12] MEDS ORDERED: TORAdol 30 mg Injection ONE (18:05)
[2024-06-12] MEDS: Sodium Chloride 0.9% 1000 ML 1,000 ML IV STA (18:07)
[2024-06-12] MEDS: Zofran 4 MG/2 ML VIAL IV ONE (18:09)
[2024-06-12] MEDS: MORPHINE SULFATE 4 MG INJ IV ONE ×2 (18:12→21:13)
[2024-06-12] MEDS: TORAdol 30 mg Injection IV ONE (18:13)
[2024-06-12 18:17] LABS: ALBUMIN 4.7 g/dL (3.5-5.0); ANION GAP 21.5 MEQ/L (5-15); BILIRUBIN,TOTAL 2.1 mg/dL (0.2-1.3); Calcium 10.4 mg/dL (8.4-10.2); Creatinine 1 0.59 mg/dL (0.52-1.04); Total Protein 8.5 g/dL (6.3-8.2)
[2024-06-12 18:56] LABS: HCG URINE TEST NEGATIVE (NEGATIVE)
[2024-06-13] MEDS ORDERED: Hydromorphone 1 mg/ml Injection ONE (00:08)
[2024-06-13] MEDS: Hydromorphone 1 mg/ml Injection IV ONE (00:09)
[2024-06-13 00:44] VITALS: BP 142/89; PULSE 66; RESP 9; O2SAT 97
--- NOTE | 2024-06-13 08:50 | XRAY ---
Indication: Upper abdominal pain. Status post cholecystectomy 1 week. Multiple contiguous axial images obtained through the abdomen and pelvis using 80 cc Isovue 370 contrast. Comparison: None Lung bases clear. Heart not enlarged. Noncontrasted stomach and bowel loops appear nonobstructed. Minimal sigmoid diverticulosis. Previous appendectomy and cholecystectomy. Tiny abdominal and small pelvic free fluid. Additional focal fluid collection in gallbladder fossa measuring 2.2 x 5.7 cm with tiny air bubbles either postop fluid/seroma versus biloma. Infection not completely excluded in right clinical setting. Common bile duct demonstrates 0.5 x 0.8 x 2 cm choledochal stone with mild biliary prominence. Spleen is enlarged measuring 13 cm. Remaining liver, pancreas, spleen, adrenal glands, kidneys, ureters, bladder, uterus, and aorta are unremarkable. No pathologic retroperitoneal lymphadenopathy. Osseous structures intact. Impression: 1. Status post cholecystectomy with tiny abdominal and small pelvic free fluid. Also abnormal fluid collection in gallbladder fossa with tiny air bubbles. Partial differential offered above. 2. Choledochal stone with mild biliary tree prominence. 3. Incidental splenomegaly.
== END 2024-06-13 00:21 | disposition short-term general hospital (02) ==
LOC: ED 16:34
DX: K80.50 Calculus of bile duct without cholangitis or cholecystitis without obstruction (principal); R10.10 Upper abdominal pain, unspecified; R11.2 Nausea with vomiting, unspecified; Z79.891 Long term (current) use of opiate analgesic; Z79.899 Other long term (current) drug therapy
CPT/HCPCS: 36000; 36415; 74177; 80053; 81001; 81025; 83605; 83690; 85025; 87086; 96360; 96374; 96375; 96376; 99285; J1170; J1885; J2270; J2405